=== PATIENT | female | born 1985 | race Caucasian/White ===

== ENCOUNTER 2019-12-14 11:52 | Emergency (ER) | payer OTHER, SELFPAY ==
[2019-12-14 11:58] VITALS: BP 136/97; PULSE 68; RESP 20; TEMP 36.7; O2SAT 99
--- NOTE | 2019-12-14 12:19 | ED.NAVMDI ---
HPI - Nausea/Vomiting/Diarrhea General Chief complaint: Nausea/Vomiting/Diarrhea Stated complaint: n/v/d x3days Time Seen by Provider: 12/14/19 12:07 Source: patient, RN notes reviewed and other (Review discharge instructions from [facility] in [facility]) Mode of arrival: ambulatory Limitations: no limitations History of Present Illness HPI Narrative: Patient is a 34-year-old female who presents to the emergency department with complaint of epigastric pain, nausea, and vomiting. Patient reports onset of symptoms 3 days ago. Patient reports history of acid reflux and states she has had issues with vomiting in the past, but symptoms this episode are worse than usual. Patient was seen at [facility] on 12/11 and 12/12 for these complaints. Patient had full panel of labs completed both visits and did have a CAT scan completed which she states was told showed no abnormalities. Patient was initially prescribed Bentyl, Zofran, and Carafate. She was subsequently prescribed Ativan and promethazine. Patient denies relief with prescribed medications. Patient is on omeprazole for her acid reflux. MD elicited complaint: nausea and vomiting Location of pain: epigastric Relieving factors: none Related Data Home Medications Medication Instructions Recorded Confirmed lorazepam 1 mg PO TID PRN 12/14/19 omeprazole 20 mg PO DAILY PRN 12/14/19 Allergies Allergy/AdvReac Type Severity Reaction Status Date / Time aspirin Allergy Severe Jittery/PAL Verified 11/30/17 05:24 E/SHAKEY/N/ V Review of Systems Review of Systems: All systems reviewed & are unremarkable except as noted in HPI and below PMFSH Past Medical History Medical History (Updated 12/14/19 @ 15:19 by Siobhan Wilson MD) GERD (gastroesophageal reflux disease) Surgical History Surgical History (Updated 12/14/19 @ 12:24 by Siobhan Wilson MD) History of dilatation and curettage History of ovarian cystectomy Social History Social History (Updated 12/14/19 @ 12:25 by Siobhan Wilson MD) Smoking status: Former smoker Substance use type: marijuana Last use: Approximately 2 weeks Exam Const: General: cooperative, no acute distress and alert Nutritional Appearance: obese Orientation/consciousness: patient oriented x3 Limitations: no limitations HENMT: Mouth: Yes lip normal and Yes moist mucous membranes Resp: Effort & Inspection: normal respiratory effort Auscultation: clear to auscultation bilaterally Cardio: Rate: regular rate Rhythm: regular rhythm GI: GI Palp: Yes Soft to palpation, Yes Tenderness to palpation present (GI) (Epigastric), No Guarding due to palpation present (GI) and No Rebound tenderness present Auscultation: normal bowel sounds Skin: General skin exam: normal color Neuro: General: patient oriented x3 Cognition (Neuro): normal cognition Speech: normal speech Extrem: General: normal to inspection, full ROM and no clubbing, cyanosis or edema Psych: Mental Status: mental status grossly normal Affect: normal affect Attitude: cooperative Course Course Emergency Course: Patient feeling better after Haldol, Protonix, GI cocktail, and IV fluids. Patient advised to continue her omeprazole and Carafate as prescribed and take her home nausea medications as needed and directed and to follow-up with primary care physician for further evaluation. Vital Signs Vital signs: Vital Signs Temperature 98.0 F 12/14/19 11:58 Pulse Rate 68 12/14/19 11:58 Respiratory Rate 20 12/14/19 11:58 Blood Pressure 136/97 H 12/14/19 11:58 Pulse Oximetry 99 12/14/19 11:58 Temperature 98.0 F 12/14/19 11:58 Pulse Rate 73 12/14/19 14:21 Respiratory Rate 18 12/14/19 14:21 Blood Pressure 152/84 H 12/14/19 14:21 Pulse Oximetry 100 12/14/19 14:21 MDM - Nausea/Vomiting/Diarrhea Lab Data Attestation: I reviewed the patient's lab results. Result diagrams:
[2019-12-14] MEDS: LACTATED RINGERS 1,000 ML 999 ML IV CONT (12:31)
[2019-12-14] MEDS: HALOPERIDOL LACTATE 5 MG/ML VIAL IM (12:31)
[2019-12-14] MEDS: PANTOPRAZOLE SODIUM IV 40 MG VIAL IV PUSH (12:31)
[2019-12-14 12:49] LABS: Basophils Percent Auto 0.3 % (0.2-1.2); Eosinophils Percent Auto 0.1 % (0-4.4); Hematocrit 42.4 % (37.0-47.0); Hemoglobin 14.2 g/dL (12.0-15.0); Immature Granulocyte Absolute 0.06 K/mm3 (0.00-0.031); Immature Granulocyte Percent A 0.5 % (0-0.5); Lymphocytes Absolute Auto 1.59 K/mm3 (0.9-3.2); Lymphocytes Percent Auto 13.3 % (18.3-44.2); Mean Corpuscular HGB Conc 33.5 g/dl (32-36); Mean Corpuscular Hemoglobin 28.6 pg (26-34); Mean Corpuscular Volume 85.3 fl (80-100); Mean Platelet Volume 10.7 fl (7.4-10.4); Monocytes Absolute Auto 0.6 K/mm3 (0.1-0.6); Neutrophils Absolute Auto 9.7 K/mm3 (1.3-6.7); Neutrophils Percent Auto 80.8 % (45.5-73.1); Platelet Count Result 360 k/mm3 (150-375); Red Blood Count 4.97 M/mm3 (4.2-5.4); Red Cell Distribution Width 13.2 % (11.5-14.5)
[2019-12-14 12:54] VITALS: BP 148/90; PULSE 65
[2019-12-14 12:55] VITALS: BP 148/102; PULSE 71
[2019-12-14 12:57] VITALS: BP 162/95; PULSE 71
[2019-12-14 13:01] LABS: Alanine Aminotransferase 22 U/L (4-35); Albumin Level 4.6 g/dL (3.5-5.1); Alkaline Phosphatase 76 U/L (38-126); Aspartate Amino Transferase 19 U/L (14-36); Bilirubin,Total 0.6 mg/dL (0.2-1.3); Blood Urea Nitrogen 10 mg/dL (7-17); Calcium 9.5 mg/dL (8.4-10.2); Carbon Dioxide 24 mmol/L (22-30); Chloride 104 mmol/L (98-107); Estimated CRCL calculation 182 ml/min; Estimated Glomerular Filt Rate > 60; Glucose 110 mg/dL (65-105); Lipase 35 U/L (23-300); Potassium 3.3 mmol/L (3.4-5.0); Sodium 137 mmol/L (137-145)
[2019-12-14 13:22] LABS: Add Urine Microscopic? YES; Appearance Urine Clear (Clear); Bilirubin Urine Negative (Negative); Blood Urine Negative (Negative); Color Urine Yellow (Yellow); Glucose Urine UA Negative (Negative); Ketones Urine 1+ mg/dL (Negative); Leukocyte Esterase Ur Negative LEU/UL (Negative); Mucus Urine Rare /lpf; Nitrate Urine Negative (Negative); Protein Urine 1+ mg/dL (Negative); RBC Urine 0-2 /hpf (0-2); Specific Grav Ur 1.021 (1.001-1.035); Squamous Epithelial Cell Urine Few /hpf (Few); Urobilinogen Urine Negative mg/dL (<2.0); WBC Urine 0-3 /hpf
[2019-12-14 14:21] VITALS: BP 152/84; PULSE 73; RESP 18; O2SAT 100
[2019-12-14 15:26] VITALS: BP 140/87; PULSE 80; RESP 16; O2SAT 100
== END 2019-12-14 15:27 | disposition home or self-care (01) ==
PROVIDERS: Emergency Provider Emergency Medicine; PCP Family Medicine
DX: R11.2 Nausea with vomiting, unspecified (principal); E86.0 Dehydration; K21.9 Gastro-esophageal reflux disease without esophagitis; Z87.891 Personal history of nicotine dependence
CPT/HCPCS: 36415; 80053; 81001; 83690; 85025; 96361; 96372; 96374; 99284; A9270; C9113; J1630; J7120

== ENCOUNTER 2020-09-28 18:16 | Emergency (ER) | payer BC, SELFPAY ==
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
--- NOTE | 2020-09-28 18:23 | ED.GENADULT ---
HPI - General Adult General Chief complaint: Extremity Injury, Upper Stated complaint: left wrist pain Time Seen by Provider: 09/28/20 18:23 Source: patient Mode of arrival: ambulatory Limitations: no limitations History of Present Illness HPI narrative: 35-year-old female patient presents to the [facility] with complaints of left wrist pain. Patient states about a week ago she went to go and use her left wrist to push up from getting up from a chair and states she heard a pop and immediately had pain to the left wrist. Patient states she iced and has been taking Tylenol and ibuprofen for it but continues to have pain to the left wrist area even a week later. Patient states that she is now developed some numbness to the thumb and has weakness to the hand when trying to pour something with the hand or when she tries to hold her phone for an extended period of time. Patient also reports that she had there is a little bump to her wrist that is very tender. Patient states that she did have issues with tendons and ligaments when she was younger and had to see an orthopedic surgeon as well as go to physical therapy. Patient suspects she might of had undiagnosed Marfan syndrome but states that her parents were not very attentive parents and really did not fill her in on any type of diagnosis. Related Data Home Medications Medication Instructions Recorded Confirmed lorazepam 1 mg PO TID PRN 12/14/19 escitalopram oxalate mg 09/28/20 omeprazole 09/28/20 Allergies Allergy/AdvReac Type Severity Reaction Status Date / Time aspirin Allergy Severe Jittery/PAL Verified 09/28/20 18:28 E/MODESTO/N/ V Review of Systems Review of Systems: Narrative: CONSTITUTIONAL: Denies fever, chills, or sweats. EYES: Denies visual changes, redness, or discharge. ENT: Denies rhinorrhea, congestion, sore throat, or otalgia. CARDIOVASCULAR: Denies chest pain, palpitations, or edema. RESPIRATORY: Denies cough or dyspnea. GASTROINTESTINAL: Denies abdominal pain, nausea, vomiting, or diarrhea. GENITOURINARY: Denies dysuria or hematuria. SKIN: Denies rash or itching. MUSCULOSKELETAL: Denies back pain, joint pain, or myalgia. Positive left wrist pain NEUROLOGIC: Denies headache, numbness, or weakness. PSYCHIATRIC: Denies anxiety or depression. [facility] Past Medical History Medical History (Updated 09/28/20 @ 19:07 by JELENA Shen) Anxiety GERD (gastroesophageal reflux disease) Surgical History Surgical History History of dilatation and curettage History of ovarian cystectomy Social History Social History Smoking status: Former smoker Substance use type: marijuana Last use: Approximately 2 weeks Comments At the time of my signature I agree with nursing past medical history, surgical, social, and family history. There is no relevant family history pertinent to the presenting complaint. Exam Narrative: Exam Narrative: GENERAL: Well-appearing, well-nourished, and in no acute distress. HEAD: Normocephalic, atraumatic. EYES: PERRLA and EOMI. ENT: Nares clear, no rhinorrhea or epistaxis. Mucous membranes moist. NECK: Supple. No lymphadenopathy CHEST: Clear to auscultation. No respiratory distress. HEART: Regular rate and rhythm. No murmur heard. Normal peripheral pulses. ABDOMEN: Soft, nontender, nondistended, normal active bowel sounds. EXTREMITIES: The L wrist is without obvious asymmetry or deformity when compared to the R wrist. No surface trauma, open wounds, swelling, or obvious deformity. Patient does have what appears to be a small knot to the radial side of the anterior left wrist. The knot is tender on palpation. No overlying erythema or warmth. No bony crepitus or focal area of TTP. No scaphoid fullness or tenderness to direct palpation or axial load. Normal flex/extension, ulnar/radial deviation. Motor/sensory
[2020-09-28 18:34] VITALS: BP 145/87; PULSE 83; RESP 16; TEMP 37.2; O2SAT 99
== END 2020-09-28 19:09 | disposition home or self-care (01) ==
PROVIDERS: Emergency Provider Nurse Practitioner Family; PCP Family Medicine
DX: M65.4 Radial styloid tenosynovitis [de Quervain] (principal); F41.9 Anxiety disorder, unspecified; K21.9 Gastro-esophageal reflux disease without esophagitis; Z87.891 Personal history of nicotine dependence
CPT/HCPCS: 73110; 99213; G0463

== ENCOUNTER 2022-11-29 12:27 | Emergency (ER) | payer OTHER, BC, SELFPAY ==
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
[2022-11-29 13:13] VITALS: BP 150/60; PULSE 75; RESP 16; TEMP 36.5; O2SAT 100
[2022-11-29 16:36] VITALS: BP 139/90; PULSE 82; RESP 18; O2SAT 100
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
[2022-11-29] MEDS: KETOROLAC (*BKC) 60 MG/2 ML VIAL IM (17:25)
== END 2022-11-29 17:35 | disposition home or self-care (01) ==
PROVIDERS: Emergency Provider Physician Assistant; PCP Family Medicine
DX: S16.1XXA Strain of muscle, fascia and tendon at neck level, initial encounter (principal); S46.911A Strain of unspecified muscle, fascia and tendon at shoulder and upper arm level, right arm, initial encounter; K21.9 Gastro-esophageal reflux disease without esophagitis; F41.9 Anxiety disorder, unspecified; Z87.891 Personal history of nicotine dependence; V49.40XA Driver injured in collision with unspecified motor vehicles in traffic accident, initial encounter
CPT/HCPCS: 70450; 72125; 73030; 96372; 99284; J1885

== ENCOUNTER 2023-02-12 10:51 | Emergency (ER) | payer BC, SELFPAY ==
--- NOTE | ~2023-02-12 | XR_ITS ---
XR foot LT min 3V DATE: 02/12/2023 11:16 INDICATION: Left lateral foot pain TECHNIQUE: 4 views COMPARISON: None FINDINGS: Mild plantar and posterior calcaneal enthesopathy, without associated erosive change or per iostitis. There is mild soft tissue swelling over the base of the fifth metatarsal bone. There is some thinning and lucency of the lateral cortex of the fifth metatarsal bone in the proximal diametaphyseal area, of uncertain significance. No fracture is evident. No periosteal reaction is detected. Consider MR ex amination for further evaluation as clinically appropriate. Otherwise no fracture, dislocation, periosteal reaction or bone destruction is noted. IMPRESSION: Soft tissue swelling over the base of the fifth metatarsal with underlying nonspecific co rtical thinning and lucency of the lateral diametaphyseal area of the fifth metatarsal bone. Consider MR foot evaluation Reviewed, dictated and finalized at location A. IMPRESSION: Soft tissue swelling over the base of the fifth metatarsal with und erlying nonspecific cortical thinning and lucency of the lateral diametaphyseal area of the fifth metatarsal bone. Consider MR foot evaluation
--- NOTE | 2023-02-12 10:55 | ED.LOWEXIN ---
HPI - Extremity Injury (Lower) General Chief Complaint: Extremity Injury, Lower Stated Complaint: left foot pain Time Seen by Provider: 02/12/23 10:55 Source: patient, RN notes reviewed and old records reviewed Mode of arrival: ambulatory Limitations: no limitations History of Present Illness HPI Narrative: 37-year-old female to the [facility] with complaints of left lateral foot pain for 9 days. States that she dropped a table on it. Has been resting, icing it, heating it, using KT tape Related Data Home Medications Medication Instructions Recorded Confirmed alprazolam 1 mg tablet 1 mg PO TID 02/12/23 02/12/23 amitriptyline 25 mg tablet 25 mg PO HS 02/12/23 02/12/23 phentermine 37.5 mg tablet 37.5 mg PO DAILY 02/12/23 02/12/23 Allergies Allergy/AdvReac Type Severity Reaction Status Date / Time aspirin Allergy Severe Jittery/PAL Verified 02/12/23 11:03 E/SHAKEY/N/ V Review of Systems Review of Systems: All systems reviewed & are unremarkable except as noted in HPI and below Constitutional: Constitutional: Reports no additional constitutional complaints Eyes: Eyes: Reports no additional eye complaints ENT: Reports system reviewed and no additional complaints, except as documented Cardiovascular: Cardiovascular: Reports no additional cardiovascular complaints, Denies chest pain and Denies dyspnea Respiratory: Respiratory: Reports no additional respiratory complaints, Denies chest congestion, Denies cough and Denies dyspnea Gastrointestinal: Gastrointestinal: Reports no additional gastrointestinal complaints, Denies abdominal pain, Denies nausea and Denies vomiting Musculoskeletal: Musculoskeletal: Reports as per HPI Integumentary/Breasts: Skin/Breast: Reports system reviewed and no additional complaints, except as docu Neurologic: Reports system reviewed and no additional complaints, except as documented Psychiatric: Psychiatric: Reports no additional psychiatric complaints Allergic/Immunologic: Allergic/Immunologic: Reports no additional allergic/immunologic complaints PMFSH Past Medical History Medical History Anxiety GERD (gastroesophageal reflux disease) Surgical History Surgical History History of dilatation and curettage History of ovarian cystectomy Social History Social History Smoking status: Former smoker Substance use type: marijuana Last use: Approximately 2 weeks Comments At the time of my signature, I reviewed and agree with the nursing past medical, surgical, social, and family history. There is no relevant family history pertinent to the patient complaint. Exam Const: General: cooperative, healthy appearing, comfortable, no acute distress, well developed, alert and well nourished Nutritional Appearance: well nourished Orientation/consciousness: patient oriented x3 Limitations: no limitations HENMT: Head: normal to inspection Ears: hearing grossly normal bilaterally and external ears normal Face/Nose/Sinus: Normal external nose present, Normal nares present and normal facial exam Face and sinus: normal facial exam Mouth: Yes lip normal Eyes: General: appearance normal, both eyes and all related structures Alignment and Position: alignment normal Periorbital: periorbital findings normal Pupils: Equal, round and reactive pupils present EOM: EOMs intact bilaterally Neck: Neck: normal visual inspection, full ROM, no lymphadenopathy and no meningeal signs Chest: Chest palpation & inspection: normal inspection of the chest Resp: Effort & Inspection: normal respiratory effort and able to speak in complete sentences Cardio: Rate: regular rate Rhythm: regular rhythm Back/Spine/Pelvis: Cervical Spine: cervical ROM normal Thoracic/Lumbar Spine: No thoracic spinal tenderness Skin: General skin exam:
[2023-02-12 11:08] VITALS: BP 118/79; PULSE 71; RESP 16; TEMP 36.7; O2SAT 98
== END 2023-02-12 12:00 | disposition home or self-care (01) ==
PROVIDERS: Emergency Provider Nurse Practitioner; PCP Family Medicine
DX: M79.672 Pain in left foot (principal); Z87.891 Personal history of nicotine dependence; F12.90 Cannabis use, unspecified, uncomplicated; F41.9 Anxiety disorder, unspecified; K21.9 Gastro-esophageal reflux disease without esophagitis
CPT/HCPCS: 73630; 99213; G0463

== ENCOUNTER 2024-01-11 08:52 | Emergency (ER) | payer MEDICAID, SELFPAY ==
--- NOTE | 2024-01-11 09:03 | ED.URI ---
HPI - URI/Sore Throat General Chief Complaint: Allergic Reaction Stated Complaint: Throat Swellng Time Seen by Provider: 01/11/24 09:05 Source: patient Mode of arrival: ambulatory Limitations: no limitations History of Present Illness HPI Narrative: Kayy is a 38-year-old female patient presenting to the clinic today with complaints of feeling as though her throat is swelling. She states that this started this morning. Did have a itchy skin last night took some Benadryl and this resolved however, this morning she woke up with what she feels is swelling of her throat. She denies any difficulty swallowing, coughing, difficulty breathing, or swelling of the tongue. There is no active drooling. She denies any fever, chills, or body aches. No known exposure to anyone with strep. No changes in soaps, shampoos, detergents, lotions, foods, medications, or environment. No history anaphylaxis. Only medication history allergy is aspirin. MD elicited complaint: sore throat Related Data Home Medications Medication Instructions Recorded Confirmed alprazolam 1 mg tablet 1 mg PO TID 02/12/23 01/11/24 amitriptyline 25 mg tablet 25 mg PO HS 02/12/23 01/11/24 phentermine 37.5 mg tablet 37.5 mg PO DAILY 02/12/23 01/11/24 Allergies Allergy/AdvReac Type Severity Reaction Status Date / Time aspirin Allergy Severe Jittery/PAL Verified 02/12/23 11:03 E/MODESTO/N/ V Review of Systems Review of Systems: Pertinent positives per HPI. Patient denies any fever, chills, rash, headache, visual changes, dizziness, cough, shortness of breath, chest pain, palpitations, nausea, vomiting, diarrhea, constipation, abdominal pain, or any urinary issues. [facility] Past Medical History Medical History Anxiety GERD (gastroesophageal reflux disease) Surgical History Surgical History History of dilatation and curettage History of ovarian cystectomy Social History Social History Smoking status: Former smoker Substance use type: marijuana Last use: Approximately 2 weeks Comments At the time of my signature, I reviewed and agree with the nursing past medical, surgical, social, and family history. There is no relevant family history pertinent to the patient complaint. Exam Narrative: General: Well-developed, well nourished, in no apparent distress Head: Normocephalic, atraumatic Eyes: Pupils equally round and reactive to light bilaterally, EOM intact, sclera and conjunctive clear, no discharge, lids normal Ears: TMs intact and clear, ear canals clear, no drainage, grossly hearing normal. Nose: Nares patent, no discharge, no inflammation, no sinus tenderness. Mouth: Oral pharynx red without lesions or masses, good dentition, MMM. Neck: Supple, trachea midline, no enlargement of anterior or posterior cervical nodes, no thyroid masses or goiter palpable. Cardio: Regular rate and rhythm, s1 and s2 normal, no murmur appreciated. Resp: Clear to auscultation bilaterally, no rhonchi, rales, wheezing or rubs Course Course Emergency Course: Portions of this record may have been created with voice recognition software. Level of Care: Express Care Visit Vital Signs Vital signs: Vital signs reviewed MDM - URI/Sore Throat MDM Narrative Medical decision making narrative: At the time of visit patient is resting comfortably on the exam table. Patient appears to be nontoxic. Labs: Strep test was obtained was negative in the clinic today. We will send for culture Plan: I suspect patient has pharyngitis- no obvious allergic reaction/throat swelling/or angio edema. Strep test was negative so I will put her on a 5 day course of steroids to see if this helps alleviate her symptoms and discussed using Benadryl. Supportive measures were discussed with the idris
[2024-01-11 09:04] VITALS: BP 122/57; PULSE 87; RESP 16; TEMP 36.8; O2SAT 100
== END 2024-01-11 09:25 | disposition home or self-care (01) ==
PROVIDERS: Emergency Provider Nurse Practitioner Family; PCP Family Medicine
DX: J02.9 Acute pharyngitis, unspecified (principal); K21.9 Gastro-esophageal reflux disease without esophagitis
CPT/HCPCS: 87081; 87880; 99213; G0463

== ENCOUNTER 2024-02-14 02:36 | Emergency (ER) | payer MEDICAID, SELFPAY ==
--- NOTE | ~2024-02-14 | CT_ITS ---
EXAMINATION: CT lumbar spine wo con DATE: 02/14/2024 03:37 INDICATION: Low back pain. Left-sided sciatica. TECHNIQUE: Computed tomography (CT) of the lumbar spine was performed without intravenous contrast. A utomated exposure control and iterative reconstruction technique were employed. The dose-length produ ct was 1524.18 mGy-cm. COMPARISON: None FINDINGS: There is an intrauterine device in expected position. Bone alignment is normal. Vertebral b july heights are normal. There is mildly decreased disc height at L4-L5 and moderately decreased disc height at L5-S1. The following disc levels are specifically discussed: L1-L2: The disc does not extend beyond the endplate margin. There is mild bilateral facet joint osteo arthritis. There is no neural foraminal stenosis. There is no central canal stenosis. L2-L3: The disc does not extend beyond the endplate margin. There is moderate bilateral facet joint o steoarthritis. There is no neural foraminal stenosis. There is no central canal stenosis. L3-L4: The disc is bulging. There is severe bilateral facet joint osteoarthritis. There is mild bilat eral neural foraminal stenosis. There is mild central canal stenosis. L4-L5: The disc is bulging. There is severe bilateral facet joint osteoarthritis. There is mild bilat eral neural foraminal stenosis. There is mild central canal stenosis. L5-S1: The disc is bulging. There is severe bilateral facet joint osteoarthritis. There is mild right and moderate left neural foraminal stenosis. There is mild central canal stenosis. IMPRESSION: 1. Moderate lower lumbar spondylosis. Reviewed, dictated and finalized at location A.
[2024-02-14 02:48] VITALS: BP 152/106; PULSE 79; RESP 22; TEMP 36.6; O2SAT 100
[2024-02-14] MEDS: ORPHENADRINE CITRATE 100 MG TABLET.ER PO (03:18)
[2024-02-14] MEDS: KETOROLAC (*BKC) 60 MG/2 ML VIAL IM (03:19)
[2024-02-14] MEDS: dexAMETHasone SOD PHOS INJ 10 MG/ML 1 ML VIAL IM (03:19)
[2024-02-14 03:32] LABS: Appearance Urine Cloudy (Clear); Bacteria Urine 1+ /hpf; Bilirubin Urine Negative (Negative); Blood Urine 3+ (Negative); Color Urine Yellow (Yellow); Glucose Urine UA Negative (Negative); Ketones Urine Negative (Negative); Leukocyte Esterase Ur Negative LEU/UL (Negative); Nitrate Urine Negative (Negative); Non Pathogenic Casts 0-2; Protein Urine Trace mg/dL (Negative); Specific Grav Ur 1.028 (1.001-1.035); Squamous Epithelial Cell Urine Few /hpf (Few); WBC Urine 0-5 /hpf (0-3); pH Urine 6.5 (5.0-9.0)
[2024-02-14 03:36] LABS: Add Urine Microscopic? YES
[2024-02-14 03:58] VITALS: BP 121/88; PULSE 60; RESP 16; O2SAT 100
--- NOTE | 2024-02-14 04:21 | ED.GENADULT ---
HPI - General Adult General Chief complaint: Back Pain/Injury Stated complaint: back pain Time Seen by Provider: 02/14/24 03:00 History of Present Illness HPI narrative: patient 38-year-old female presents emergency department with chief complaint of back pain. Patient reports that she has prior history of herniated disc in her back and reports that about 3 days ago she was moving some boxes and turned and felt a uncomfortable feeling in the left flank area the patient worse the pain radiates down her left leg reports that she does have some intermittent tingling in the posterior aspect of her thigh. The patient reports that she has no new bowel or bladder dysfunction denies saddle anesthesia denies footdrop. Related Data Home Medications Medication Instructions Recorded Confirmed alprazolam 1 mg tablet 1 mg PO TID 02/12/23 01/11/24 amitriptyline 25 mg tablet 25 mg PO HS 02/12/23 01/11/24 phentermine 37.5 mg tablet 37.5 mg PO DAILY 02/12/23 01/11/24 Allergies Allergy/AdvReac Type Severity Reaction Status Date / Time aspirin Allergy Severe Jittery/PAL Verified 02/12/23 11:03 E/SHAKEY/N/ V Review of Systems Review of Systems: A 10 system review of systems was completed on the patient and is negative except for what is stated in the HPI. Nursing and ancillary documentation was reviewed. [facility] Past Medical History Medical History Anxiety GERD (gastroesophageal reflux disease) Surgical History Surgical History History of dilatation and curettage History of ovarian cystectomy Social History Social History Smoking status: Former smoker Substance use type: marijuana Last use: Approximately 2 weeks Exam Narrative: GENERAL: Well-appearing, well-nourished, and in no acute distress. HEAD: Normocephalic, atraumatic. EYES: PERRLA and EOMI. ENT: Nares clear, no rhinorrhea or epistaxis. Mucous membranes moist. NECK: Supple. CHEST: Clear to auscultation. No respiratory distress. HEART: Regular rate and rhythm. No murmur heard. Normal peripheral pulses. ABDOMEN: Soft, nontender, nondistended, normal active bowel sounds. EXTREMITIES: Normal range of motion. No edema. No saddle anesthesia no footdrop SKIN: Warm, dry, no rash. NEURO: No focal deficits. Alert and oriented x3. PSYCH: Normal mood and affect. Course Vital Signs Vital signs: Vital Signs Temperature 36.6 C 02/14/24 02:48 Pulse Rate 79 02/14/24 02:48 Respiratory Rate 22 H 02/14/24 02:48 Blood Pressure 152/106 H 02/14/24 02:48 Pulse Oximetry 100 02/14/24 02:48 Oxygen Delivery Room Air 02/14/24 02:48 Temperature 36.6 C 02/14/24 02:48 Pulse Rate 75 02/14/24 05:41 Respiratory Rate 15 02/14/24 05:41 Blood Pressure 118/80 02/14/24 05:41 Pulse Oximetry 100 02/14/24 05:41 Oxygen Delivery Room Air 02/14/24 02:48 Medical Decision Making [facility] Narrative Medical decision making narrative: differential diagnosis includes sciatica, lumbar radiculopathy, patient shows no signs of acute cauda equina syndrome no evidence of acute nerve root compression patient given steroids muscle relaxer and and anti-inflammatories. Patient is feeling better patient be discharged home a steroid pulse muscle relaxer and an anti-inflammatory Vital Signs Vital Signs: Vital Signs Temperature 36.6 C 02/14/24 02:48 Pulse Rate 79 02/14/24 02:48 Respiratory Rate 22 H 02/14/24 02:48 Blood Pressure 152/106 H 02/14/24 02:48 Pulse Oximetry 100 02/14/24 02:48 Oxygen Delivery Room Air 02/14/24 02:48 Temperature 36.6 C 02/14/24 02:48 Pulse Rate 75 02/14/24 05:41 Respiratory Rate 15 02/14/24 05:41 Blood Pressure 118/80 02/14/24 05:41 Pulse Oximetry 100 02/14/24 05:41 Oxygen Delivery Room Air
[2024-02-14 05:41] VITALS: BP 118/80; PULSE 75; RESP 15; O2SAT 100
== END 2024-02-14 06:11 | disposition home or self-care (01) ==
PROVIDERS: Emergency Provider Emergency Medicine
DX: M54.32 Sciatica, left side (principal); K21.9 Gastro-esophageal reflux disease without esophagitis; F41.9 Anxiety disorder, unspecified; Z87.891 Personal history of nicotine dependence; Z79.899 Other long term (current) drug therapy
CPT/HCPCS: 72131; 81001; 81025; 96372; 99284; A9270; J1100; J1885

== ENCOUNTER 2024-10-01 11:52 | Emergency (ER) | payer MEDICAID, SELFPAY ==
--- NOTE | 2024-10-01 12:14 | ED_ITS ---
HPI - Nausea/Vomiting/Diarrhea General Chief complaint: Nausea/Vomiting/Diarrhea Stated complaint: Light headed/Vomiting Time Seen by Provider: 10/01/24 12:14 Source: patient and family Mode of arrival: ambulatory Limitations: no limitations History of Present Illness HPI Narrative: Kayy is a 39-year-old female patient presenting to the clinic today with complaints of fainting, nausea, vomiting, diarrhea, abdominal pain, and chest pain. Symptoms started around 6:00 a.m. this morning. Is now dry heaving. She is hunched over in the wheelchair and will not get on to the stretcher because she feels so faint. Stating that her abdomen and chest her and that she is short of breath. Went to the ER in had 15 patient's before them so they decided to come to the [facility] for evaluation. Related Data Home Medications ?Medication ?Instructions ?Recorded ?Confirmed ?Last Taken ?Type alprazolam 1 mg tablet 1 mg PO TID 02/12/23 01/11/24 Unknown History amitriptyline 25 mg tablet 25 mg PO HS 02/12/23 01/11/24 Unknown History phentermine 37.5 mg tablet 37.5 mg PO DAILY 02/12/23 01/11/24 Unknown History Allergies Allergy/AdvReac Type Severity Reaction Status Date / Time aspirin Allergy Severe Jittery/PAL Verified 02/12/23 11:03 E/MODESTO/N/ V Review of Systems Review of Systems: Pertinent positives per HPI. Patient denies any fever, chills, rash, headache, visual changes, dizziness, cough, runny nose, sore throat, chest pain, palpitations, constipation, or any urinary issues. [facility] Past Medical History Medical History Anxiety GERD (gastroesophageal reflux disease) Surgical History Surgical History History of dilatation and curettage History of ovarian cystectomy Social History Social History Smoking status: Former smoker Substance use type: marijuana Last use: Approximately 2 weeks Comments At the time of my signature, I reviewed and agree with the nursing past medical, surgical, social, and family history. There is no relevant family history pertinent to the patient complaint. Exam Narrative: General: Well-developed, well nourished, pale and acutely ill-appearing Head: Normocephalic, atraumatic. Cardio: Regular rate and rhythm, s1 and s2 normal, no murmur appreciated. Resp: Clear to auscultation bilaterally, no rhonchi, rales, wheezing or rubs. Abdomen: Soft, pliable, bowel sounds present in all quadrants, generalized- tender to palpation, no organomegly, no CVAT tenderness. Course Course Emergency Course: Portions of this record may have been created with voice recognition software. Level of Care: Express Care Visit Vital Signs Vital signs: Vital Signs Temperature 36.0 C L 10/01/24 12:16 Pulse Rate 79 10/01/24 12:16 Respiratory Rate 16 10/01/24 12:16 Blood Pressure 156/94 H 10/01/24 12:16 Pulse Oximetry 100 10/01/24 12:16 Temperature 36.0 C L 10/01/24 12:16 Pulse Rate 79 10/01/24 12:16 Respiratory Rate 16 10/01/24 12:16 Blood Pressure 156/94 H 10/01/24 12:16 Pulse Oximetry 100 10/01/24 12:16 Vital signs reviewed Transfer Transfered to: [facility]: [facility] Transfer rationale: Syncope, nausea, vomiting, diarrhea, abdominal pain, chest pain, shortness of breath Accepting physician: Maricruz Transfer comments: [facility] MDM - Nausea/Vomiting/Diarrhea MDM Narrative Medical decision making narrative: At the time of visit patient is sitting in a wheelchair hunched over and dry heaving. Patient appears to be acutely [id number] Plan: Recommend transfer to the ER as patient has been fainting, having nausea, vomiting, and diarrhea as well as complaining of chest pain, abdominal pain, and shortness of breath. [facility] was called. Family would like to go to [facility]. Contacted Maricruz at [facility] and she accepts patient for transfer. Differential Diagnosis Differential diagnosis: Likely traveler's diarrhea, food poisoning, gastroenteritis, clostridium difficile infection, drug-induced nausea and vomiting, dehydration and other (COVID, vasovagal syncope, hyperventilation, anxiety, nausea, vomiting, and diarrhea) Discharge Plan Discharge Clinical Impression: Syncope Qualifiers: Syncope type: unspecified Qualified Code(s): R55 - Syncope and collapse Nausea & vomiting Qualifiers: Vomiting type: bilious vomiting Qualified Code(s): R11.14 - Bilious vomiting Abdominal pain Qualifiers: Abdominal location: generalized Qualified Code(s): R10.84 - Generalized abdominal pain Chest pain Qualifiers: Chest pain type: unspecified Qualified Code(s): R07.9 - Chest pain, unspecified Clinical Impression: (Ruled Out): Drug-induced nausea and vomiting Patient Disposition: Acute Care Hospital Condition: Guarded Prognosis Patient Language: Amharic Prescriptions: No Action phentermine 37.5 mg tablet 37.5 mg PO DAILY amitriptyline 25 mg tablet 25 mg PO HS alprazolam 1 mg tablet 1 mg PO TID prednisone 20 mg tablet 40 mg PO DAILY 5 Days Qty: 10 0RF cyclobenzaprine 10 mg tablet 10 mg PO TID PRN (Reason: muscle spasm) Qty: 21 0RF diclofenac potassium 50 mg tablet 50 mg PO TID PRN (Reason: pain) Qty: 30 0RF prednisone 20 mg tablet 40 mg PO DAILY 5 Days Qty: 10 0RF Follow-up/Referrals: PHYSICIAN,PROJECT GEOPHYSICIST [Primary Care Provider] - Time of Disposition: 12:24 Quality NIHSS Nursing Documentation ED NIHSS nursing documentation: reviewed/agree
[2024-10-01 12:16] VITALS: BP 156/94; PULSE 79; RESP 16; TEMP 36; O2SAT 100
== END 2024-10-01 12:20 | disposition short-term general hospital (02) ==
PROVIDERS: Emergency Provider Nurse Practitioner Family
DX: R55 Syncope and collapse (principal); R11.14 Bilious vomiting; R10.84 Generalized abdominal pain; R07.9 Chest pain, unspecified; F12.90 Cannabis use, unspecified, uncomplicated; F41.9 Anxiety disorder, unspecified; K21.9 Gastro-esophageal reflux disease without esophagitis
CPT/HCPCS: 99215; G0463

== ENCOUNTER 2024-10-01 12:47 | Emergency (ER) | payer MEDICAID, SELFPAY ==
--- NOTE | ~2024-10-01 | CT_ITS ---
EXAMINATION: CT brain wo con DATE: 10/01/2024 14:00 INDICATION: Head injury. Loss of consciousness. TECHNIQUE: Computed tomography (CT) of the head was performed without intravenous contrast. The mA wa s adjusted according to patient size. Iterative reconstruction technique was employed. The dose-lengt h product was 681.00 mGy-cm. COMPARISON: Head CT 11/29/2022 FINDINGS: There is no intracranial hemorrhage, acute infarction, or abnormal intracranial mass lesion . The ventricles are normal in size. There is mild mucosal thickening in the ethmoid sinuses. There i s a small left mastoid effusion. IMPRESSION: 1. Normal brain. Reviewed, dictated and finalized at location A. SHELL GRINDER IMPRESSION: 1. Normal brain.
--- OUTSIDE RECORDS SUMMARY | 2024-10-01 12:55 | XMS_ITS | Clinical Summary ---
Author Organization [facility] Address [address] [place] [address] Care Team Providers Care Typists Supervisor Name Role Phone Josette aSlas MD Primary Care Provider + Allergies Active Allergy Reactions Criticality Noted Date Comments Aspirin Vomiting Low 10/12/2019 Medications ALPRAZolam (XANAX) 1 mg tablet Take 1 mg by mouth 3 (three) times a day as needed for anxiety Active famotidine (PEPCID) 20 mg tabletIndications:D yspepsia Take 1 tablet (20 mg total) by mouth 2 (two) times a day 30 tablet 0 Active escitalopram (LEXAPRO) 10 mg tablet TK 1 T PO QD 0 Active omeprazole (PriLOSEC) 20 mg capsule Take 20 mg by mouth daily Active prochlorperazine (COMPAZINE) 10 mg tabletIndications:N ausea and Vomiting Take 1 tablet (10 mg total) by mouth 2 (two) times a day as needed for nausea or vomiting 10 tablet 1 0 Active LORazepam (Ativan) 1 mg tabletIndications:a nxiety,Insomnia,or nausea Take 1 tablet (1 mg total) by mouth 3 (three) times a day as needed for anxiety 15 tablet 1 Active ondansetron (ZOFRAN) 4 mg tablet Take 1 tablet (4 mg total) by mouth every 6 (six) hours 12 tablet 1 Active prochlorperazine (COMPAZINE) 10 mg tablet Take 1 tablet (10 mg total) by mouth every 6 (six) hours as needed for nausea or vomiting 20 tablet 1 Active ondansetron ODT (ZOFRAN-ODT) 4 mg disintegrating tablet Take 1 tablet (4 mg total) by mouth every 8 (eight) hours as needed for nausea or vomiting 20 tablet 1 Active doxycycline (VIBRAMYCIN) 100 mg capsule Take 1 tablet/capsu le (100 mg total) by mouth 2 (two) times a day 20 capsule 1 Active Active Problems No known active problems Surgical History Surgery Date Site/Laterality Comments DILATION AND CURETTAGE OF UTERUS CYST REMOVAL DILATION AND CURETTAGE OF UTERUS OVARIAN CYST REMOVAL Medical History Medical History Date Comments Hiatal hernia GERD (gastroesophageal reflux disease) Social History Tobacco Use Types Packs/Day Years Used Date Smoking Tobacco: Former Smokeless Tobacco: Never Alcohol Use Standard Drinks/Week Comments Not Currently 0 (1 standard drink = 0.6 oz pur e alcohol) Personal Safety Answer Date Recorded Getting School Help Needed Not on file 10/27 Comments No Sex and Gender Information Value Date Recorded Sex Assigned at Not on file 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 Gender Identity Not on file Sexual Orientation Not on file Obstetrics History Last Filed Vital Signs Vital Sign Reading Time Taken Comments Blood Pressure 136/69 05/24/2022 12:49 PM CDT Pulse 68 05/24/2022 12:49 PM CDT Temperature 35.9 ??C (96.6 ??F) 05/24/2022 12:49 PM C DT Respiratory Rate 26 05/24/2022 12:49 PM CDT Oxygen Saturation 100% 05/24/2022 12:49 PM CDT Inhaled Oxygen Concentration - - Weight 131.5 kg (290 lb) 05/24/2022 12:49 PM CDT Height 193 cm (6' 4 ) 05/24/2022 12:49 PM CDT Body Mass Index 35.3 05/24/2022 12:49 PM CDT Plan of Treatment Not on file Insurance PLAN PLAN PLAN Care Teams Typists Supervisor Relationship Specialty Start Date End Date Josette Salas MD PCP - General 03/20/19
--- OUTSIDE RECORDS SUMMARY | 2024-10-01 12:55 | XMS_ITS | Referral Summary ---
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
--- OUTSIDE RECORDS SUMMARY | 2024-10-01 12:55 | XMS_ITS | Clinical Summary ---
Author Organization [facility] Address [facility]. [place], [place] [address] [place] [id number] Care Team Providers Care Pharmacy Aide Name Role Phone Josette Salas MD Primary Care Provider [phone] Allergies Active Allergy Reactions Criticality Noted Date Comments Aspirin Shakiness 12/12/2019 Medications ALPRAZolam 1 MG tablet Take 1 mg by mouth 3 (three) times daily as needed for Sleep or Anxiety. Active dicyclomine 20 MG tablet Take 1 tablet (20 mg total) by mouth every 6 (six) hours. 30 tablet 1 Active ondansetron 4 MG tablet Take 4 mg by mouth every 8 (eight) hours. 1 Active cyclobenzaprine 5 MG tablet Take 5 mg by mouth 3 (three) times daily as needed. 1 Active ondansetron (ZOFRAN ODT) 4 MG disintegrating tablet Take 1 tablet (4 mg total) by mouth every 8 (eight) hours as needed for Nausea. 15 tablet 1 Active omeprazole 40 MG capsule Take 1 capsule (40 mg total) by mouth daily. 30 capsule 1 Active Family History Medical History Relation Comments Heart Disease Father Relation Status Comments Father Mother Social History Tobacco Use Types Packs/Day Years Used Date Smoking Tobacco: Never Smokeless Tobacco: Never Alcohol Use Standard Drinks/Week Comments Never 0 (1 standard drink = 0.6 oz pur e alcohol) AUDIT-C Answer Date Recorded Frequency of Alcohol Consumption Never 12/12/2019 Average Number of Drinks Not on file 020 Frequency of Binge Drinking Not on file 11/26 Comments No Sex and Gender Information Value Date Recorded Sex Assigned at Not on file Legal Sex Female 8:23 PM CDT Gender Identity Not on file Sexual Orientation Not on file Last Filed Vital Signs Vital Sign Reading Time Taken Comments Blood Pressure 159/107 06/18/2021 8:23 AM CDT Pulse 85 06/18/2021 8:23 AM CDT Temperature 36.2 ??C (97.2 ??F) 06/18/2021 8:23 AM CD T Respiratory Rate 20 06/18/2021 8:23 AM CDT Oxygen Saturation 99% 06/18/2021 8:23 AM CDT Inhaled Oxygen Concentration - - Weight 125.2 kg (276 lb) 06/18/2021 8:23 AM CDT Height 190.5 cm (6' 3 ) 06/18/2021 8:23 AM CDT Body Mass Index 34.5 06/18/2021 8:23 AM CDT Plan of Treatment Health Maintenance Due Date Last Done Comments Cervical Cancer Screening Pa p Smear (Age 30 to 64) Every 3 Years 1987 Annual Physical 1990 Hepatitis C 2005 DTaP, Tdap and Td Vaccines ( 1 - Tdap) 2006 Hepatitis B Vaccines (1 of 3 - 19+ 3-dose series) 2006 Cervical Cancer Screening Pa p with HPV Testing (Age 30 to 64) Every 5 Years 2017 Cervical Cancer Screening with HPV 2017 COVID-19 Vaccine (2023-2 5 season) 2024 Influenza Adult (#1) 2024 HPV Vaccines Aged Out No longer eligi ble based on patient's age to complete this topic Meningococcal B Vaccine Aged Out No l onger eligible based on patient's age to complete this topic Meningococcal Vaccine Aged Out No opal radha eligible based on patient's age to complete this topic Pneumococcal Vaccine: Pediat rics (0 to 5 Years) and At-Risk Patients (6 to 64 Years) Aged Out No longer eligible b ased on patient's age to complete this topic RSV Immunizations Under 20 Months Aged Out No longer eligible based on patient's age to complete this topic Insurance [facility] C/O PROVIDER SERVICES MALLORY [id number] Care Teams Pharmacy Aide Relationship Specialty Start Date End Date Josette Salas MD [address] [place] [address] ALEXANDRA WANG [id number] PCP - General FAMILY PRACTICE 12/12/19
[2024-10-01 13:20] VITALS: BP 140/83; PULSE 84; RESP 20; TEMP 36.6; O2SAT 100
--- NOTE | 2024-10-01 13:32 | ED.NAVMDI ---
HPI - Nausea/Vomiting/Diarrhea General Chief complaint: Nausea/Vomiting/Diarrhea Stated complaint: Nausea/Vomiting-syncopal episode Time Seen by Provider: 10/01/24 13:25 Focused HPI: Patient is a 39-year-old female presents to the ER with complaints of chest pain, upper abdominal pain, shortness of breath, multiple episodes of syncope, dry heaving, and multiple episodes of emesis. She reports her symptoms started abruptly this morning around 6:00 a.m. Patient reports she hit the side of her face on the wall and is unsure if she lost consciousness. She endorses a ?cardiac history, and history of depression. Patient reports she uses marijuana on a daily basis, but they ruled out my symptoms being caused by marijuana. She denies any urinary symptoms, recent fevers, back pain, headache. GENERAL: Ill-appearing, well-nourished, and in acute distress d/t vomiting. HEAD: Normocephalic, atraumatic. CHEST: Clear to auscultation. ?No respiratory distress. HEART: Regular rate and rhythm.? NEURO: ?Alert and oriented x3. Patient screened in triage and initial orders placed.? ?Additional care and disposition to be based upon?diagnostic testing and treatment. Related Data Home Medications ?Medication ?Instructions ?Recorded ?Confirmed ?Last Taken ?Type alprazolam 1 mg tablet 1 mg PO TID 02/12/23 01/11/24 Unknown History amitriptyline 25 mg tablet 25 mg PO HS 02/12/23 01/11/24 Unknown History phentermine 37.5 mg tablet 37.5 mg PO DAILY 02/12/23 01/11/24 Unknown History Allergies Allergy/AdvReac Type Severity Reaction Status Date / Time aspirin Allergy Severe Jittery/PAL Verified 02/12/23 11:03 E/MODESTO/N/ V PMF Past Medical History Medical History Anxiety GERD (gastroesophageal reflux disease) Surgical History Surgical History History of dilatation and curettage History of ovarian cystectomy Social History Social History Smoking status: Former smoker Substance use type: marijuana Last use: Approximately 2 weeks Course Vital Signs Vital signs: Vital Signs Temperature 36.6 C 10/01/24 13:20 Pulse Rate 84 10/01/24 13:20 Respiratory Rate 20 10/01/24 13:20 Blood Pressure 140/83 10/01/24 13:20 Pulse Oximetry 100 10/01/24 13:20 Oxygen Delivery Room Air 10/01/24 13:20 Temperature 36.6 C 10/01/24 13:20 Pulse Rate 84 10/01/24 13:20 Respiratory Rate 20 10/01/24 13:20 Blood Pressure 140/83 10/01/24 13:20 Pulse Oximetry 100 10/01/24 13:20 Oxygen Delivery Room Air 10/01/24 13:20 Discharge Plan Discharge Clinical Impression: Drug-induced nausea and vomiting, Dehydration Patient Disposition: Elopement After Seen by Prov Condition: Guarded Prognosis Patient Language: Macedonian Prescriptions: No Action phentermine 37.5 mg tablet 37.5 mg PO DAILY amitriptyline 25 mg tablet 25 mg PO HS alprazolam 1 mg tablet 1 mg PO TID prednisone 20 mg tablet 40 mg PO DAILY 5 Days Qty: 10 0RF cyclobenzaprine 10 mg tablet 10 mg PO TID PRN (Reason: muscle spasm) Qty: 21 0RF diclofenac potassium 50 mg tablet 50 mg PO TID PRN (Reason: pain) Qty: 30 0RF prednisone 20 mg tablet 40 mg PO DAILY 5 Days Qty: 10 0RF Follow-up/Referrals: PHYSICIAN,SECONDARY SPECIAL EDUCATION TEACHER [Primary Care Provider] -
--- NOTE | 2024-10-01 15:00 | PC.NURSE ---
Patient electing to leave, Left AC IV catheter removed-catheter intact. Patient encouraged to return for worsening symptoms. Home via pvt vehicle
--- OUTSIDE RECORDS SUMMARY | 2024-10-01 15:34 | XMS_ITS | Data Portability ---
Author Organization [facility] [employer] , [facility] Address [address] [place] [address] Care Team Providers Care Private Watchman Name Role Phone [facility]chand[facility] Assessment No assessment recorded. Plan of Treatment Reminders Order Date Submit Date Provider Last Modified By Organization Details Last Modified Time Details Appointments None recorded. Lab STI panel 2023 024 [facility], [address] [place], [address], 4 13:50:28 unlisted lab - STD screening ([facility]) 2023 024 [facility], [address] [place] [address], [address], 4 11:46:27 Referral None recorded. Procedures None recorded. Surgeries None recorded. Imaging None recorded. Medication Orders meloxicam 15 mg tablet 2023 024 [id number], [address], [place], [id number], 4 19:14:04 Patient TargetsNo targets recorded. Patient InstructionsNo instructions recorded. Reason for Referral None Reported. Results Created Date Observation Date Name Description Value Unit Range Abnormal Flag Note LastModifiedBy Organization Detail LastModifiedTime 12/09/19 24 12/09/2023 STD SCREE BROCK ([facility] ) STD screening ([facility]) No specim en receiv ed to EDWARDO as of 2023 Not Available [facility] [address] [place], [address], 12/09/2023 11:46:26 11/28/19 24 11/30/2023 STI PANEL trichomonas vaginalis TRICH POS negati ve abnormal Not Available [facility] Edwardo [address] [place], [address], 11/30/2023 13:50:28 11/28/19 24 11/30/2023 STI PANEL chlamydia trachomatis CT neg negati ve normal This repor t is inten ded for us in clini alex monit oring and manag ement of patie nts. It is not inten ded for use in medic al-le gal appli catio n. Not Available Ra[facility] Edwardo [address] [place], [address], 11/30/2023 13:50:28 11/28/19 24 11/30/2023 STI PANEL neisseria gonorrhoeae GC neg negati ve normal This repor t is inten ded for us in clini alex monit oring and manag ement of patie nts. It is not inten ded for use in medic al-le gal appli catio n. Not Available [facility] Edwardo [address] [place], [address], 11/30/2023 13:50:28 Result Notes None recorded. Problems Name Problem SNOMED Code Status Onset Date Resolution Date Notes Provider Name and Address Organization Details Recorded Time Sampling of vagina for Papanico laou smear Completed 201902/24/2021 Encounte r for gynecolo gical examinat ion (general ) (routine ) without abnormal findings ; Progress : Stable Added By: Tiffanie Prajapati Add to Current Problems : NO ProblemS tatus: Resolve Not Available [facility] 2 21:10:35 Pelvic and perineal pain 231590327 Active 2020 Pelvic and perineal pain; Progress : Stable Added By: Enedelia Royal Add to Current Problems : YES ProblemS tatus: Current Not Available [facility] 2 21:10:36 Screenin g for malignan t neoplasm of cervix Completed 201902/24/2021 Encounte r for screenin g for malignan t neoplasm of cervix; Progress : Stable Added By: Tiffanie Prajapati Add to Current Problems : NO ProblemS tatus: Resolve Not Available [facility] 2 21:10:38 Problem Notes None recorded. Procedures Surgical History Date Name Laterality Status Provider Name and Address Organization Details Recorded Time Date of Last Pap Smear completed [facility] 11/28/2023 17:25:26 Colonoscopy completed [facility] 11/28/2023 17:25:27 Imaging Results None recorded. Procedure Notes None recorded. Medical Equipment None Reported. Allergies Allergen ID Allergen Name Allergen Category Reaction Reaction Severity Criticality Documentation Date Start Date Code Code System Note Provider Name and Address Organization Details Recorded Time 603939 aspirin medicatio n Not available Not available Not available 06/18/20212019 1191 RxNorm Sever ity: Moder ate; Not Available Not Available Not Available Medications Name Sig Start Date Stop Date Status Note LastModified by Organization Details LastModified Time Mirena 21 mcg/24 hr (up to 8 years) 52 mg intrauter ine device 02/08 completed Mirena 20 mcg/24 hours (5 yrs) 52 mg Intraute rine Intraute rine Device RxNorm: [id number] Allow Substitu tion: False Refill Denied: No Refill DateOccu rred: 05/12/20 Edited by: clementine Lion onSonya ) on 02/09/20 Stopped by: clementine shanks(Eduar onSonya ) on 02/09/20 21 Not Available Not Available Not Available alprazola m 1 mg tablet TAKE 1 TABLET BY MOUTH THREE TIMES DAILY NEEDED active Not Available Not Available No t Available meloxicam 15 mg tablet TAKE 1 TABLET BY MOUTH DAILY THE WEEK OF MENSES active Not Available Not Available No t Available prednison e 20 mg tablet TAKE 2 TABLETS BY MOUTH DAILY FOR 5 DAYS active Not Available Not Available No t Available metronida zole 500 mg tablet TAKE 4 TABLETS BY MOUTH EVERY DAY active Not Available Not Available No t Available phentermi ne 37.5 mg tablet TAKE 1 TABLET BY MOUTH EVERY DAY active Not Available Not Available No t Available amoxicill in 875 mg tablet TAKE 1 TABLET BY MOUTH EVERY 12 HOURS FOR 10 DAYS active Not Available Not Available No t Available gabapenti n 300 mg capsule TAKE 1 CAPSULE BY MOUTH THREE TIMES DAILY 11/27 completed Not Available Not Available Not Available ondansetr on 4 mg disintegr ating tablet place 1 tablet (4 mg) and place on top of the tongue where it will dissolve , then swallow by translin gual route 4 times per day active ondanset roxanne 4 mg oral Tablet,d isintegr ating RxNorm: [id number] Allow Substitu tion: False Refill Denied: No Refill DateOccu rred: 02/09/20 Edited by: clementine shanks(Thornt on, Sonya ) on 02/09/20 Stopped by: clementine shanks(Thornt on, Sonya ) on Not Available Not Available Not Available ParaGard T 380A 380 square mm intrauter ine device active ParaGard T 380A 380 square mm Intraute rine Intraute rine Device RxNorm: [id number] Allow Substitu tion: False Refill Denied: No Refill DateOccu rred: 02/09/20 Edited by: clementine shanks(Thornt on, Sonya ) on 02/09/20 Stopped by: clementine shanks(Thornt on, Sonya ) on Not Available Not Available Not Available naproxen 500 mg tablet TAKE 1 TABLET BY MOUTH TWICE DAILY NEEDED FOR PAIN 11/27 completed Not Available Not Available Not Available amoxicill in 875 mg-potass ium clavulana te 125 mg tablet TAKE 1 TABLET BY MOUTH EVERY 12 HOURS FOR 10 DAYS 11/27 completed Not Available Not Available Not Available cyclobenz aprine 5 mg tablet TAKE 1 TABLET BY MOUTH THREE TIMES DAILY NEEDED 11/27 completed Not Available Not Available Not Available potassium chloride active potassiu m chloride RxNorm: [id number] Refill Denied: No Refill DateOccu rred: 02/09/20 Edited by: clementine shanks(Thornt on, Sonya ) on 02/09/20 21 Stopped by: clementine shanks(Thornt on, Sonya ) on Not Available Not Available Not Available Centrum 11/27 completed Centrum Allow Substitu tion: False Refill Denied: No Refill DateOccu rred: 05/12/20 Edited by: tonia( Tiffanie Prajapati ) on 05/12/20 20 Stopped by: tonia( Tiffanie Prajapati ) on Not Available Not Available Not Available Vitals Date Recorded Body weight Body mass index (BMI) Body height Systolic blood pressure Diastolic blood pressure Provider Name and Address Organization Details Last Updated DateTime 11/28/2023 694362.7 1 g 31.5 kg/m2 193.04 cm 120 mm[Hg] 78 mm[Hg] Alina Cobianjhoan [employer] 17:40:18 Social History Question Answer Notes LastModified by Organizat ion Details LastModified Time Tobacco Smoking Status Former Smoker Alina Bolton pedro [employer] 11/28/2023 17:25:27 What Is Your Level Of Alcohol Consumption? Occasional Information not available 11/28/2023 How Many Years Have You Consumed Alcohol? 20 Information not available 11/28/2023 Are You Blind Or Do You Have Difficulty Seeing? No Information not available 11/28/2023 Are You Currently Employed? Yes Information not available 11/28/2023 Are You Deaf Or Do You Have Serious Difficulty Hearing? No Information not available 11/28/2023 What Type Of Diet Are You Following? REGULAR Information not available 11/28/2023 When Did You Quit Smoking? 1-5yearssincel astcigarette Information not available 11/28/2023 How Many Children Do You Have? 2 Information not available 11/28/2023 Are There Any Occupational Health Risks Where You Work? Yes Information not available 11/28/2023 What Is Your Relationship Status? Information not available 11/28/2023 Are You Sexually Active? Yes Information not available 11/28/2023 At What Age Did You Start Smoking Tobacco? 18 Information not available 11/28/2023 Do You Use Any Illicit Or Recreational Drugs? No Information not available 11/28/2023 How Many Years Have You Smoked Tobacco? 12 Information not available 11/28/2023 Do You Or Have You Ever Used Any Other Forms Of Tobacco Or Nicotine? No Information not available 11/28/2023 Sex: Unknown Functional Status Question Answer Note LastModified by Organizat ion Details LastModified Time What is your exercise level? Occasional Information not available 11/28/2023 Mental Status None recorded. Family History Relationship Description Onset Age of this Age Resolved Age Notes LastModified by Organization Details LastModified Time Brother Depressive disorder [email or web address] Not available 2023 17:25:26 Sister Depressive disorder [email or web address] Not available 2023 17:25:26 Father Depressive disorder [email or web address] Not available 2023 17:25:26 Medical History Condition Response Panic Attacks Y Arthritis Y Polycystic Ovarian Syndrome Y Seasonal allergies Y ADD/ADHD Y Headaches/migraines Y GERD (reflux) Y Gynecological History Statement/Question Response Flow Moderate Frequency of Cycle (Q days) 30 Date of LMP 11/25/2023 HPV Vaccine N Date of Last Pap Smear 12/17/2020 Duration of Flow (days) 5 Current Control Method IUD Age at Menarche 17 Obstetrics History GPAL:G 3 P 2 0 1 2 Type Value Full Term 2 Spontaneous 1 Living 2 Total 3 Past Encounters Encounter ID Performer Location Encounter Start Date Encounter Closed Date Diagnosis/Indication Diagnosis SNOMED-CT Code Diagnosis ICD10 Code Diagnosis Note [id number] Roselia Bryant MD [facility] [address] [facility] [place] [address] 11/28/2023 17:03:54 11/28/2023 18:11:55 Dysmenorrhea 686453649 N94.5 discussed use of NSAIDS to reduce prostaglan dins, allergic to asa but can take other NSAIDS. Venereal d isease screening 101020300 Z11.3 Health Concerns Section Related Observation LastModified by Organization Detai ls LastModified Time None Recorded Concern Status LastModified by Organization Details LastModified Time None Recorded Advance Directives Directive None Recorded Payers Encounter Date Sequence Insurance Name Policy Number Policy Manriquez Covered Member ID Manriquez Member ID Guarantor Name 11/28/2023 1 [facility] (MEDICAID REPLACEMENT - HMO) [id number] Kayy Dorado [id number] Kayy Dorado Notes Date Note Type Note Provider Name and Address Organization Details Recorded Time 11/28/2023 text/html Kayy has bee n having issues with her cyclesTakes high dose of magnesium still has painful cramps through bodyShe will have nausea started to have issue with staying at work , moving around and lifting cause more painRight before period, she has cramps for 2 days, nausea, even feverish. Cramps radiate to her legsShe thinks it all is related to her PMSJennifer request to have STI testing Roselia Bryant MD [address] [place], [address], [facility] [employer] 11/28/2023 18:11:40 OBGyn Episode Ob Episode Information Episode Created Date Number of Fetuses Patient Bloodtype Patient rh Status Prepregnancy Weight lbs Domestic Partner Domestic Partner Phone Father Name Ride Attendant Status 11/28/19 24 1 CLOSED Fetus Data First Name Last Name Admitted to NICU Weight (g) Sex Living Outcome Pediatric Complications Fetus ID Race Codes Race Delivery Type 3968.93 M Full Term Gama Calculation Initial Gama Date Initial Exam Date Initial Exam Provider Initial Ultrasound Date Last Menstrual Period Date Ultra Sound Weeks Gestation 0 Eighteen To Twenty Week Gama Update Ultra Sound Date Fundal Height At Umbil Quickening Date Ultra Sound Latest Weeks Gestation Final Gama Confirmed By Final Gama Confirmed Date Final Gama Date Ultra Sound Latest Days Gestation 0 0 Menstrual History Last Menstrual Date Menses Monthly On Bcp Conception Prior Menses Frequency Hcg Plus Date Menarche Onset Age Delivery Information Delivery Date Delivery Type Labor Anesthesia Weeks Gestation Incision Type Labor Labor Length Hrs Delivered By Post Complications Tubal Sterilization Discharge Date Comments 8 false right to term date Discharge Information Feeding Method Contraceptive Method Maternal HG B and HCT Levels Ob Episode Information Episode Created Date Number of Fetuses Patient Bloodtype Patient rh Status Prepregnancy Weight lbs Domestic Partner Domestic Partner Phone Father Name Ride Attendant Status 11/28/19 24 1 CLOSED Fetus Data First Name Last Name Admitted to NICU Weight (g) Sex Living Outcome Pediatric Complications Fetus ID Race Codes Race Delivery Type 4082.32 8 M Full Term Gama Calculation Initial Gama Date Initial Exam Date Initial Exam Provider Initial Ultrasound Date Last Menstrual Period Date Ultra Sound Weeks Gestation 0 Eighteen To Twenty Week Gama Update Ultra Sound Date Fundal Height At Umbil Quickening Date Ultra Sound Latest Weeks Gestation Final Gama Confirmed By Final Gama Confirmed Date Final Gama Date Ultra Sound Latest Days Gestation 0 0 Menstrual History Last Menstrual Date Menses Monthly On Bcp Conception Prior Menses Frequency Hcg Plus Date Menarche Onset Age Delivery Information Delivery Date Delivery Type Labor Anesthesia Weeks Gestation Incision Type Labor Labor Length Hrs Delivered By Post Complications Tubal Sterilization Discharge Date Comments 3 false 2 weeks from due date Discharge Information Feeding Method Contraceptive Method Maternal HG B and HCT Levels Ob Episode Information Episode Created Date Number of Fetuses Patient Bloodtype Patient rh Status Prepregnancy Weight lbs Domestic Partner Domestic Partner Phone Father Name Ride Attendant Status 11/28/19 24 1 CLOSED Fetus Data First Name Last Name Admitted to NICU Weight (g) Sex Living Outcome Pediatric Complications Fetus ID Race Codes Race Delivery Type , Spontane ous Gama Calculation Initial Gama Date Initial Exam Date Initial Exam Provider Initial Ultrasound Date Last Menstrual Period Date Ultra Sound Weeks Gestation 0 Eighteen To Twenty Week Gama Update Ultra Sound Date Fundal Height At Umbil Quickening Date Ultra Sound Latest Weeks Gestation Final Gama Confirmed By Final Gama Confirmed Date Final Gama Date Ultra Sound Latest Days Gestation 0 0 Menstrual History Last Menstrual Date Menses Monthly On Bcp Conception Prior Menses Frequency Hcg Plus Date Menarche Onset Age Delivery Information Delivery Date Delivery Type Labor Anesthesia Weeks Gestation Incision Type Labor Labor Length Hrs Delivered By Post Complications Tubal Sterilization Discharge Date Comments 1 Discharge Information Feeding Method Contraceptive Method Maternal HG B and HCT Levels
--- OUTSIDE RECORDS SUMMARY | 2024-10-01 15:35 | XMS_ITS | Data Portability ---
Author Organization [place] [facility] [place] [employer], Main Office Address [address] [place] [address] Assessment Encounter Date Assessment Date Assessment LastModified by Organization Details LastModified Time 05/17/2023 05/17/2023 37-year-old female returns to clinic concerning a left 5th metatarsal [place] fracture that occurred approximately 3 months ago. Patient is doing well and has been able to transition to a regular sneaker without any issues. She does not have any tenderness along the fracture site today. She has been walking more on the outside of her foot causing some irritation over the small toe, which we discussed should improve with time as she has been walking in a stiff-soled shoe /boot for a while. she was reassured that her hip pain should improve as she normalizes her walking as well. She may return to full duty work with the option to take breaks as needed. She will follow-up in 6-8 weeks for re-evaluation. [email or web address] Not available 05/17/2023 11:25:35 07/12/2023 07/12/2023 37-year-old female presents for follow-up of her left foot and evaluation of a new complaint with her right foot. She has a base of 5th metatarsal fracture on the left side treated conservatively, and is feeling better. She is able to work at [employer] without any difficulties on the left side. She started developing pain on her right foot, which has been going on for long time and getting significantly worse ever since her left foot injury. Pain is over the mid and forefoot and over the balls of the feet. She has tried changing her shoe wear to a wider shoe, and used a arch support strap, which seems to help, she reports 2 to 3/10 pain. She has otherwise been taking ibuprofen. Physical exam: For her left foot there is no tenderness palpation of the base 5th of the 5th metatarsal. She has good ankle and foot range of motion. On her right foot, she has no tenderness over the ankle or midfoot, but does have tenderness over the 1st and 2nd metatarsal heads. She has sensation intact to light touch, 2+ DP pulse. Able to move her toes and ankle without difficulty. X-rays of the right foot were obtained reviewed, demonstrating no acute bony abnormality. Her left base of 5th metatarsal fracture is healed and she may be activities as tolerated. With regards her right side, she has metatarsalgia and I recommended using a gel pad and shoes with wide toe box. She may get that [id number] . She may continue to be activities as tolerated. We will have her follow-up on a as needed basis. She is in agreement with plan. [email or web address] Not available 07/12/2023 10:38:11 Plan of Treatment Reminders Order Date Submit Date Provider Last Modified By Organization Details Last Modified Time Details Appointments None recorded. Lab HbA1c (hemoglobin A1c), blood 2023 024 [email or web address] Not available 4 17:13:15 vitamin D3, 25-hydroxy, serum 2023 024 [email or web address] Not available 4 17:11:10 magnesium, serum or plasma 2023 024 [email or web address] Not available 4 17:11:24 vitamin B12, serum 2023 024 [email or web address] Not available 4 17:11:39 TSH, serum or plasma 2023 024 [email or web address] Not available 4 17:11:52 folate, serum 2023 024 [email or web address] Not available 4 17:12:07 CBC w/ auto diff 2023 024 [email or web address] Not available 4 17:12:22 BMP, serum or plasma 2023 024 [email or web address] Not available 4 17:12:38 iron + total iron-bindin g capacity (TIBC), serum 2023 024 [email or web address] Not available 4 17:12:51 ferritin, serum or plasma 2023 024 [email or web address] Not available 4 17:13:03 unlisted lab - urine drug abuse panel 10 2023 024 [email or web address] [facility] (Lab), [address] [place], [address], 4 08:11:21 Referral psychiatris t referral - Please call patient to schedule an appointment . Thank you. 2023 024 [email or web address] [facility], [address] [facility] [facility] [address], [place], [address], 4 16:04:59 Procedures None recorded. Surgeries None recorded. Imaging XR, foot, 3 or more view 2022 023 [email or web address] [facility] [place], [address], [place], [address], 3 11:05:48 XR, foot 2022 023 [email or web address] [facility] [place], [address], [place], [address], 3 11:35:05 Medication Orders alprazolam 1 mg tablet 2022 023 [id number], [address] [place], [place], [id number], 3 14:19:19 trazodone 50 mg tablet 2023 024 [id number], [address] [facility], [place], [place], [id number], 09:26:54 Patient TargetsNo targets recorded. Patient InstructionsNo instructions recorded. Reason for Referral Psychiatrist Referral for An xiety anxiety, currently on benzo Please call patient to schedule an appointment. Thank you. Referring Physician: Elton Sifuentes, [facility] Medicine, Encounter Date: 02/15/2024 Results Created Date Observation Date Name Description Value Unit Range Abnormal Flag Note LastModifiedBy Organization Detail LastModifiedTime 11/03/19 24 11/03/2023 CBC/C OMPLE TE BLD COUNT W/DIF F white blood cells 6.7 x10'3 /uL 4.2-10 .8 Not Available [facility] (Lab) [address] [place], [address], 11/03/2023 21:28:13 11/03/19 24 11/03/2023 CBC/C OMPLE TE BLD COUNT W/DIF F red blood cells 4.56 x10'6 /uL 3.80-5 .20 Not Available [facility] (Lab) [address] [place], [address], 11/03/2023 21:28:13 11/03/19 24 11/03/2023 CBC/C OMPLE TE BLD COUNT W/DIF F hemoglobin 13.2 g/dL 12.0-1 5.6 Not Available [facility] (Lab) [address] [place], [address], 11/03/2023 21:28:13 11/03/19 24 11/03/2023 CBC/C OMPLE TE BLD COUNT W/DIF F hematocrit 40.0 % 35.7-4 5.7 Not Available [facility] (Lab) [address] [place], [address], 11/03/2023 21:28:13 11/03/19 24 11/03/2023 CBC/C OMPLE TE BLD COUNT W/DIF F mean red cell volume 87.7 fL 82.0-9 9.0 Not Available [facility] (Lab) [address] [place], [address], 11/03/2023 21:28:13 11/03/19 24 11/03/2023 CBC/C OMPLE TE BLD COUNT W/DIF F mean red cell hemoglobin 28.9 pg 27.0-3 3.0 Not Available [facility] (Lab) [address] [place], [address], 11/03/2023 21:28:13 11/03/19 24 11/03/2023 CBC/C OMPLE TE BLD COUNT W/DIF F mean RBC HGB concentratio n 33.0 g/dL 31.0-3 6.0 Not Available [facility] (Lab) [address] [place], [address], 11/03/2023 21:28:13 11/03/19 24 11/03/2023 CBC/C OMPLE TE BLD COUNT W/DIF F red cell distribution width 13.4 % 11.8-1 5.5 Not Available [facility] (Lab) [address] [place], [address], 11/03/2023 21:28:13 11/03/19 24 11/03/2023 CBC/C OMPLE TE BLD COUNT W/DIF F platelets 230 x10'3 /uL 150-40 0 Not Available [facility] (Lab) [address] [place], [address], 11/03/2023 21:28:13 11/03/19 24 11/03/2023 CBC/C OMPLE TE BLD COUNT W/DIF F mean platelet volume 11.8 fL 9.0-12 .4 Not Available [facility] (Lab) [address] [place], [address], 11/03/2023 21:28:13 11/03/19 24 11/03/2023 CBC/C OMPLE TE BLD COUNT W/DIF F neutrophils 60.6 % 39.0-7 2.0 Not Available [facility] (Lab) [address] [place], [address], 11/03/2023 21:28:13 11/03/1911/03/2023 CBC/C OMPLE TE BLD COUNT W/DIF F lymphocytes 28.0 % 16.0-4 7.0 Not Available [facility] (Lab) [address] [place], [address], 11/03/2023 21:28:13 11/03/19 24 11/03/2023 CBC/C OMPLE TE BLD COUNT W/DIF F monocytes 7.8 % 5.0-12 .0 Not Available [facility] (Lab) [address] [place], [address], 11/03/2023 21:28:13 11/03/19 24 11/03/2023 CBC/C OMPLE TE BLD COUNT W/DIF F eosinophils 2.8 % 1.0-7. 0 Not Available [facility] (Lab) [address] [place], [address], 11/03/2023 21:28:13 11/03/19 24 11/03/2023 CBC/C OMPLE TE BLD COUNT W/DIF F basophils 0.7 % 0.0-2. 0 Not Available [facility] (Lab) [address] [place], [address], 11/03/2023 21:28:13 11/03/19 24 11/03/2023 CBC/C OMPLE TE BLD COUNT W/DIF F immature granulocytes 0.1 % 0.00-0 .50 Not Available [facility] (Lab) [address] [place], [address], 11/03/2023 21:28:13 11/03/19 24 11/03/2023 CBC/C OMPLE TE BLD COUNT W/DIF F neutrophils, absolute count 4.03 x10'3 /uL 1.5-8. 0 Not Available [facility] (Lab) [address] [place], [address], 11/03/2023 21:28:13 11/03/19 24 11/03/2023 CBC/C OMPLE TE BLD COUNT W/DIF F lymphocytes, absolute count 1.87 x10'3 /uL 1.07-3 .43 Not Available [facility] (Lab) [address] [place], [address], 11/03/2023 21:28:13 11/03/19 24 11/03/2023 CBC/C OMPLE TE BLD COUNT W/DIF F monocytes, absolute count 0.52 x10'3 /uL 0.29-0 .99 Not Available [facility] (Lab) [address] [place], [address], 11/03/2023 21:28:13 11/03/19 24 11/03/2023 CBC/C OMPLE TE BLD COUNT W/DIF F eosinophils, absolute count 0.19 x10'3 /uL 0.02-0 .53 Not Available [facility] (Lab) [address] [place], [address], 11/03/2023 21:28:13 11/03/19 24 11/03/2023 CBC/C OMPLE TE BLD COUNT W/DIF F basophils, absolute count 0.05 x10'3 /uL 0.01-0 .08 Not Available [facility] (Lab) [address] [place], [address], 11/03/2023 21:28:13 11/03/19 24 11/03/2023 CBC/C OMPLE TE BLD COUNT W/DIF F immature granulocytes ,absolute 0.01 x10'3 /uL 0.00-0 .05 Not Available [facility] (Lab) [address] [place], [address], 11/03/2023 21:28:13 11/03/19 24 11/03/2023 CBC/C OMPLE TE BLD COUNT W/DIF F nucleated red blood cells 0.0 % -0 Not Available [facility] (Lab) [address] [place], [address], 11/03/2023 21:28:13 11/03/19 24 11/03/2023 CBC/C OMPLE TE BLD COUNT W/DIF F NRBC# 0.00 x10'3 /uL Not Available [facility] (Lab) [address] [place], [address], 11/03/2023 21:28:13 11/03/19 24 11/03/2023 MAGNE SIUM magnesium 1.9 mg/dL 1.6-2. 3 Not Available [facility] (Lab) [address] [place], [address], 11/03/2023 21:53:18 11/03/19 24 11/03/2023 BASIC METAB OLIC PANEL sodium 141 mmol/ L 137-14 5 Not Available [facility] (Lab) [address] [place], [address], 11/03/2023 21:53:23 11/03/19 24 11/03/2023 BASIC METAB OLIC PANEL potassium 3.7 mmol/ L 3.5-5. 1 Not Available [facility] (Lab) [address] [place], [address], 11/03/2023 21:53:23 11/03/19 24 11/03/2023 BASIC METAB OLIC PANEL chloride 108 mmol/ L 98-107 high Not Available [facility] (Lab) [address] [place], [address], 11/03/2023 21:53:23 11/03/19 24 11/03/2023 BASIC METAB OLIC PANEL carbon dioxide 26 mmol/ L 22-30 Not Available [facility] (Lab) [address] [place], [address], 11/03/2023 21:53:23 11/03/19 24 11/03/2023 BASIC METAB OLIC PANEL anion gap 10.7 mmol/ L 14-22 low Not Available [facility] (Lab) [address] [place], [address], 11/03/2023 21:53:23 11/03/19 24 11/03/2023 BASIC METAB OLIC PANEL glucose 96 mg/dL 70-99 Not Available [facility] (Lab) [address] [place], [address], 11/03/2023 21:53:23 11/03/19 24 11/03/2023 BASIC METAB OLIC PANEL BUN 16 mg/dL 8-19 Not Available [facility] (Lab) [address] [place], [address], 11/03/2023 21:53:23 11/03/19 24 11/03/2023 BASIC METAB OLIC PANEL creatinine 0.66 mg/dL 0.66-1 .25 Not Available [facility] (Lab) [address] [place], [address], 11/03/2023 21:53:23 11/03/19 24 11/03/2023 BASIC METAB OLIC PANEL GFR >60 Refer ence Range : Bazine ge GFR Healt hy Adult : >60 mL/mi n/1.7 3 m2 Chron ic Kidne y Disea se: 15-60 mL/mi n/1.7 3 m2 Kidne y Failu re: <15/m L/min /1.73 m2 www.n iddk. nih.g ov The MDRD study equat ion has not been valid ated in child fredy <18 years of age; pregn ant women ; the elder ly >85 years of age; or in some racia l or ethni c subgr oups, such as Hispa nics. Outsi de the valid ated allison eters , estim ated GFR is less accur ate, requi ring clini alex judgm ent on a case- by-ca se basis . Clini alex inter preta tion for other races and ages must be made by the clini candi. The MDRD study equat ion has not been valid ated for the evalu ation of serum creat inine relat ed to nutri gibran l statu s or medic ation usage . For perso ns <18 years of age, a pedia tric GFR calcu lator is avail able on the [facility] websi te: https ://ww w.kid carmen.o rg/pr ofess ional s/kdo qi/gf r_cal culat or Not Available [facility] (Lab) [address] [place], [address], 11/03/2023 21:53:23 11/03/19 24 11/03/2023 BASIC METAB OLIC PANEL calcium 9.9 mg/dL 8.4-10 .2 Not Available [facility] (Lab) [address] [place], [address], 11/03/2023 21:53:23 11/03/19 24 11/03/2023 IRON/ TIBC PANEL total iron binding capacity 348 mcg/d L 265-47 5 Not Available [facility] (Lab) [address] [place], [address], 11/03/2023 22:00:38 11/03/19 24 11/03/2023 IRON/ TIBC PANEL % transferrin saturation 26 % 20-[address] [facility] (Lab) [address] [place], [address], 11/03/2023 22:00:38 11/03/19 24 11/03/2023 IRON/ TIBC PANEL unsaturated iron bind capacity 257 mcg/d L 126-38 2 Not Available [facility] (Lab) [address] [place], [address], 11/03/2023 22:00:38 11/03/19 24 11/03/2023 IRON/ TIBC PANEL iron 91 mcg/d L 42-175 Not Available [facility] (Lab) [address] [place], [address], 11/03/2023 22:00:38 11/03/19 24 11/03/2023 HEMOG LOBIN A1C HA1C 5.1 % 4.0-6. 0 Diabe rosie Scree rosy Crite romina: <5.7% Consi stent with absen ce of diabe rosie 5.7-6 .4% Consi stent with incre ased risk for diabe rosie (pred iabet es) >OR=6 .5% Consi stent with diabe rosie REFER ENCE: Diabe rosie Care 2016, 39(Waggoner ppl.1 ):s13 -s22 Not Available [facility] (Lab) [address] [place], [address], 11/03/2023 22:19:05 11/03/19 24 11/03/2023 VITAM IN D 25-HY DROXY vd25oh 37.4 NG/mL 30-100 Vitam in D Statu s: Defic ient: <20 ng/mL Insuf ficie nt: 20-29 ng/mL Suffi cient : 30-10 0 ng/mL Not Available [facility] (Lab) [address] [place], [address], 11/03/2023 22:19:25 11/03/19 24 11/03/2023 VITAM IN B12 (KALE DARCIE ) vb12 531 pg/mL 239-93 1 Not Available [facility] (Lab) [address] [place], [address], 11/03/2023 23:16:16 11/03/19 24 11/03/2023 FOLAT E, SERUM /PLAS MA folate 5.40 NG/mL 2.76-2 0.0 Not Available [facility] (Lab) [address] [place], [address], 11/03/2023 23:16:17 11/03/19 24 11/03/2023 TSH thyroid-stim ulating hormone 1.090 uIU/m L 0.465- 4.680 Not Available [facility] (Lab) [address] [place], [address], 11/03/2023 23:17:07 11/03/19 24 11/03/2023 MONICA TIN ferritin 40 NG/mL 6.24-1 37 Not Available [facility] (Lab) [address] [place], [address], 11/03/2023 23:17:12 04/18/20 23 XR, foot, 3 or more view No observ ation record ed. [email or web address] [facility] [place] [address], [place], [address], 04/18/2023 09:12:11 05/17/20 23 XR, foot, 3 or more view No observ ation record ed. [email or web address] [facility] [place] [address], [place], [address], 05/17/2023 11:25:11 07/12/20 23 XR, foot No observ ation record ed. [email or web address] [facility] [place] [address] [facility] [address], [place], [address], 07/12/2023 09:08:47 Result Notes None recorded. Problems Name Problem SNOMED Code Status Onset Date Resolution Date Notes Provider Name and Address Organization Details Recorded Time Abnormal weight gain 732806748 Active Not Available [employer] 3 02:50:27 Backache 267180303 Active Not Available [employer] 3 02:50:27 Headache 23791614 Active Not Available [employer] 3 02:50:27 Knee pain Active Not Available [employer] 3 02:50:27 Vitamin D deficiency 30181034 Active 2017 Not Available [employer] 3 02:50:27 Obesity 513139789 Active Not Available [facility] 3 02:50:28 Neck pain 27728438 Active 2022 Josette Salas MD [address], [place], [address] , [place] [facility] 3 10:06:41 Cyclical vomiting syndrome 44441081 Active 2022 Josette Salas MD [address], [place], [address] , [place] [facility] 3 17:32:39 Anxiety 45998818 Active 2022 Josette Salas MD [address], [place], [address] , [facility] 3 17:32:58 Dental abscess 071803863 Active 2022 Josette Salas MD [address], [place], [address] , [facility] 3 10:55:41 Injury of left foot 2033796577322 9108 Active 2022 MALLORY Johnson [address], [place], [address] , [place] [facility] 3 11:09:20 Pain in left foot 1005689639405 07 Active 2022 PHUONG Watt, [place] [facility] 3 11:39:08 Postconcus merly syndrome 71844824 Active 2022 Josette Salas MD [address], [place], [address] , [facility] 3 07:47:41 Pain in right foot 0722694605301 07 Active 2022 PHUONG Watt, [place] [facility] [place] [facility] 3 09:08:39 Spasm 45614718 Active 2023 Josette Salas MD [address], [place], [address] , [place] - [employer] 16:44:22 Srikanth mikki 32042257 Active 2023 Josette Salas MD [address], [place], [address] , [place] [employer] 16:45:00 Insomnia 288408770 Active 2023 MELISSA Jennings [address] [facility] [address], [place], [address] , [place] [employer] 09:24:55 Problem Notes None recorded. Procedures Surgical History None recorded. Imaging Results Imaging Date Name Status LastModified by Organiz ation Details LastModified Time 04/18/2023 XR, foot, 3 or more view completed [email or web address] [facility] [place] [address] [facility] [address], [place], [address], 04/18/2023 09:12:11 05/17/2023 XR, foot, 3 or more view completed [email or web address] [facility] [place] [address] [facility] [address], [place], [address], 05/17/2023 11:25:11 07/12/2023 XR, foot completed [email or web address] [facility] [place] [address] [facility] [address], [place], [address], 07/12/2023 09:08:47 Procedure Notes None recorded. Medical Equipment None Reported. Allergies Allergen ID Allergen Name Allergen Category Reaction Reaction Severity Criticality Documentation Date Start Date Code Code System Note Provider Name and Address Organization Details Recorded Time 4734 aspirin medicatio n nausea moderate Not available 10/26/2022 1191 RxNorm cold and shaky Desiree Guillermo, [employer] 5 [employer] null, [place] - [facility] [employer] 3 11:35:10 Medications Name Sig Start Date Stop Date Status Note LastModified by Organization Details LastModified Time cyclobenzap rine 10 mg tablet TAKE 1 TABLET BY MOUTH THREE TIMES DAILY NEEDED FOR MUSCLE SPASM active Not Available Not Available No t Available neomycin-po lymyxin-hyd rocort 3.5 mg/mL-10,00 0 unit/mL-1 % ear solution INSTILL 4 DROPS INTO AFFECTED EAR(S) BY OTIC ROUTE 3 TIMES PER DAY x 10 days active Not Available Not Available No t Available potassium chloride ER 10 mEq capsule,ext ended release TAKE 4 CAPSULES BY MOUTH TWICE DAILY FOR 4 DAYS 05/24 completed Not Available Not Available Not Available clindamycin HCl 300 mg capsule Take 1 capsule every 6 hours by oral route for 7 days. 03/05 completed Not Available Not Available Not Available loperamide 2 mg capsule 05/31 completed Not Available Not Available Not Available trazodone 50 mg tablet TAKE 1 TABLET BY MOUTH EVERY DAY active Not Available Not Available No t Available Topamax 25 mg tablet Take 1 tablet twice a day by oral route. active Not Available Not Available No t Available azithromyci n 250 mg tablet TAKE 2 TABLETS (500 MG) BY ORAL ROUTE ONCE DAILY FOR 1 DAY THEN 1 TABLET (250 MG) BY ORAL ROUTE ONCE DAILY FOR 4 DAYS active Not Available Not Available No t Available alprazolam 1 mg tablet TAKE 1 TABLET BY MOUTH THREE TIMES DAILY NEEDED active Not Available Not Available No t Available Lidocaine Viscous 2 % mucosal solution 11/05 completed Not Available Not Available Not Available benzonatate 200 mg capsule Take 1 capsule 3 times a day by oral route as needed. active Not Available Not Available No t Available valacyclovi r 1 gram tablet Take 2 tablets every 12 hours by oral route for 1 day. 03/21 completed Not Available Not Available Not Available hydrocodone 5 mg-acetamin ophen 325 mg tablet TK ONE T PO Q 6 H PRN P 05/11 completed Not Available Not Available Not Available meloxicam 15 mg tablet TAKE 1 TABLET BY MOUTH DAILY THE WEEK OF MENSES active Not Available Not Available No t Available sucralfate 1 gram tablet TK 1 T PO QID 01/13 completed Not Available Not Available Not Available ondansetron HCl 4 mg tablet TAKE 1 TABLET BY MOUTH EVERY 8 HOURS 05/31 completed Not Available Not Available Not Available prednisone 20 mg tablet TAKE 2 TABLETS BY MOUTH DAILY FOR 5 DAYS active Not Available Not Available No t Available sumatriptan 50 mg tablet Take one tablet at onset of symptoms, may repeat in 2 hours x 1 dose if needed active Not Available Not Available No t Available penicillin V potassium 500 mg tablet TK 1 T PO Q 8 H 08/08 completed Not Available Not Available Not Available metronidazo le 500 mg tablet TAKE 4 TABLETS BY MOUTH EVERY DAY active Not Available Not Available No t Available hydroxyzine HCl 50 mg tablet TK 1 T PO QID PRN 04/12 completed Not Available Not Available Not Available phentermine 37.5 mg tablet TAKE 1 TABLET BY MOUTH EVERY DAY active Not Available Not Available No t Available prochlorper azine maleate 10 mg tablet TK 1 T PO BID PRF NAUSEA OR VOMITING active Not Available Not Available No t Available acyclovir 400 mg tablet Take 1 tablet every 8 hours by oral route for 7 days. active Not Available Not Available No t Available ciprofloxac in 500 mg tablet TK 1 T PO BID 04/12 completed Not Available Not Available Not Available omeprazole 40 mg capsule,del ayed release TAKE 1 CAPSULE BY MOUTH TWICE DAILY 03/03 completed Not Available Not Available Not Available tramadol 50 mg tablet 01/31 completed Not Available Not Available Not Available ketorolac 30 mg/mL (1 mL) injection solution Inject 1 mL as needed by intramusc ular route. 08/23 completed Not Available Not Available Not Available ondansetron 8 mg disintegrat ing tablet Place 1 tablet twice a day by transling ual route as needed. active Not Available Not Available No t Available alprazolam 0.5 mg tablet 1 tab po bid prn anxiety 01/31 completed Not Available Not Available Not Available amoxicillin 875 mg tablet TAKE 1 TABLET BY MOUTH EVERY 12 HOURS FOR 10 DAYS active Not Available Not Available No t Available potassium chloride ER 20 mEq tablet,exte nded release(par t/cryst) TK 1 T PO D 05/31 completed Not Available Not Available Not Available famotidine 20 mg tablet 01/13 completed Not Available Not Available Not Available amitriptyli ne 25 mg tablet TAKE 1 TABLET BY MOUTH EVERY NIGHT AT BEDTIME 03/03 completed Not Available Not Available Not Available dicyclomine 20 mg tablet TAKE 1 TABLET BY MOUTH THREE TIMES DAILY 05/31 completed Not Available Not Available Not Available Kenalog 10 mg/mL suspension for injection In office injection administe red by the provider 11/04 [facility]- [phone]- [facility] Not Available Not Available Not Available lorazepam 2 mg tablet Take 1 tablet 3 times a day by oral route. 04/21 completed Not Available Not Available Not Available prochlorper azine 25 mg rectal suppository 01/13 completed Not Available Not Available Not Available pantoprazol e 40 mg tablet,lizzy yed release TK 1 T PO D 04/12 completed Not Available Not Available Not Available promethazin e 25 mg tablet TK 1 T PO Q 4 H 05/31 completed Not Available Not Available Not Available diclofenac potassium 50 mg tablet TAKE 1 TABLET BY MOUTH THREE TIMES DAILY NEEDED FOR PAIN active Not Available Not Available No t Available gabapentin 300 mg capsule TAKE 1 CAPSULE BY MOUTH THREE TIMES DAILY 11/02 completed Not Available Not Available Not Available omeprazole 20 mg capsule,del ayed release TAKE 1 CAPSULE BY MOUTH EVERY DAY DIRECTED active Not Available Not Available No t Available diclofenac sodium 50 mg tablet,lizzy yed release Take 1 tablet twice a day by oral route as needed for 30 days. active Not Available Not Available No t Available ergocalcife rol (vitamin D2) 1,250 mcg (50,000 unit) capsule Take 1 capsule every week by oral route. 01/13 completed Not Available Not Available Not Available lorazepam 1 mg tablet TAKE 1 TABLET BY MOUTH THREE TIMES DAILY NEEDED ANXIETY 05/24 completed Not Available Not Available Not Available methylpredn isolone 4 mg tablets in a dose pack TK UTD WITH MEALS 04/12 completed Not Available Not Available Not Available ondansetron 4 mg disintegrat ing tablet DIS ONE T PO Q 8 H PRF NAUSEA 05/31 completed Not Available Not Available Not Available cefdinir 300 mg capsule TK ONE C PO Q 12 H 04/12 completed Not Available Not Available Not Available fluticasone propionate 50 mcg/actuati on nasal spray,suspe nsion [place] 1 spray every day by intranasa l route for 30 days. 01/13 completed Not Available Not Available Not Available sertraline 50 mg tablet TK 1 T PO D 01/13 completed Not Available Not Available Not Available dicyclomine 10 mg capsule 01/13 completed Not Available Not Available Not Available loratadine 10 mg tablet Take 1 tablet every day by oral route. 04/12 completed Not Available Not Available Not Available naproxen 500 mg tablet TAKE 1 TABLET BY MOUTH TWICE DAILY NEEDED FOR PAIN 03/03 completed Not Available Not Available Not Available metoclopram ana 10 mg tablet TK 1 T PO TID PRN N active Not Available Not Available No t Available amoxicillin 875 mg-potassiu m clavulanate 125 mg tablet TAKE 1 TABLET BY MOUTH EVERY 12 HOURS FOR 10 DAYS 03/03 completed Not Available Not Available Not Available nicotine 7 mg/24 hr daily transdermal patch Apply 1 patch every day by transderm al route. active Not Available Not Available No t Available escitalopra m 10 mg tablet TAKE 1 TABLET BY MOUTH EVERY DAY active Not Available Not Available No t Available cyclobenzap rine 5 mg tablet TAKE 1 TABLET BY MOUTH THREE TIMES DAILY NEEDED 11/02 completed Not Available Not Available Not Available naproxen OTC 04/12 completed Not Available Not Available Not Available ParaGard T 380A 03/03 completed Not Available Not Available Not Available Mirena 05/24 completed Not Available Not Available Not Available lidocaine (PF) 10 mg/mL (1 %) injection solution In office injection administe red by the provider 11/04 completed [facility]: [id number] Not Available Not Available Not Available Vitals Date Recorded Body height Body mass index (BMI) Body weight Pain severity - 0-10 verbal numeric rating [Score] - Reported Provider Name and Address Organization Details Last Updated DateTime 05/17/2023 193.04 cm 32.3 kg/m2 386641.98 g 2 SHASHA Escobar [employer] 05/17/2023 09:17:46 Date Recorded Body height Body mass index (BMI) Body weight Body temperature Heart rate Oxygen saturation Oxygen saturation in Arterial blood by Pulse oximetry Provider Name and Address Organization Details Last Updated DateTime 193.04 cm 33.6 kg/m2 319794. 49 g 97.8 [degF] 93 /min 98 % 98 % Yudelka Briggs RN [employer] 3 14:11:53 Date Recorded Systolic blood pressure Diastolic blood pressure Provider Name and Address Organization Details Last Updated DateTime 06/29/2023 138 mm[Hg] 82 mm[Hg] Josette Salas MD [address], [facility] [address], [place], [address], [facility] [employer] 06/29/2023 14:17:52 Date Recorded Body height Body mass index (BMI) Body weight Provider Name and Address Organization Details Last Updated DateTime 07/12/2023 193.04 cm 32.9 kg/m2 004481.94 g Desiree LiCRISTELAA [facility] [employer] 07/12/2023 09:07:58 Date Recorded Body height Body mass index (BMI) Body weight Body temperature Heart rate Oxygen saturation Oxygen saturation in Arterial blood by Pulse oximetry Systolic blood pressure Diastolic blood pressure Provider Name and Address Organization Details Last Updated DateTime 4 193.04 cm 31 kg/m2 823545. 05 g 98 [degF] 89 /min 98 % 98 % 130 mm[Hg] 86 mm[Hg] Jennifer Qureshi RN [facility] [employer] 4 16:27:22 Date Recorded Body height Body mass index (BMI) Body weight Body temperature Heart rate Oxygen saturation Oxygen saturation in Arterial blood by Pulse oximetry Systolic blood pressure Diastolic blood pressure Provider Name and Address Organization Details Last Updated DateTime 4 193.04 cm 31 kg/m2 934470. 05 g 98.4 [degF] 83 /min 99 % 99 % 134 mm[Hg] 82 mm[Hg] Jennifer Qureshi RN [facility] [employer] [facility] 4 09:08:13 Social History Question Answer Notes LastModified by Organizat ion Details LastModified Time Tobacco Smoking Status Former Smoker quit [address] [place], [place] [employer] [facility] (formerly [employer]) 05/17/2023 09:14:50 What Is Your Level Of Alcohol Consumption? Occasional Information not available 03/03/2023 In The 14 Days Before Symptom Onset, Have You Had Close Contact With A Laboratory-confir med COVID-19 While That Case Was Ill? No Information not available 05/17/2023 In The 14 Days Before Symptom Onset, Have You Had Close Contact With A Person Who Is Under Investigation For COVID-19 While That Person Was Ill? No Information not available 05/17/2023 What Type Of Diet Are You Following? REGULAR [id number] Information not available 10/26/2022 When Did You Quit Smoking? 1-5yearssincel gabino Information not available 05/17/2023 What Was The Date Of Your Most Recent Tobacco Screening? 05/24/2021 Information not available 05/17/2023 Do You Use Your Seat Belt Or Car Seat Routinely? Yes Information not available 05/17/2023 Do You Participate In Social Media? Yes Information not available 05/17/2023 Do You Feel Stressed (tense, Restless, Nervous, Or Anxious, Or Unable To Sleep At Night)? [id number] Information not available 05/17/2023 Do You Use Any Illicit Or Recreational Drugs? No Information not available 05/17/2023 Have You Used IV Drugs? No Information not available 05/17/2023 Do You Have Any Dietary Restrictions? No Information not available 05/17/2023 Sex: Unknown Functional Status Question Answer Note LastModified by Organization D etails LastModified Time What is your exercise level? None [email or web address] Information not available 02/22/2023 Mental Status None recorded. Family History Relationship Description Onset Age of this Age Resolved Age Notes LastModified by Organization Details LastModified Time Unspecified Relation Heart disease dad's side Not available 03/03/2023 11:36:11 Father Hypertensive disorder [email or web address] Not available 2022 11:36:33 Maternal Grandmother Diabetes mellitus [email or web address] Not available 2022 11:36:48 Medical History Condition Response ULCERS Y ARTHRITIS Y USE OF NSAIDS Y ANEMIA/BLOOD DISORDER Y Gynecological History Statement/Question Response Abnormal Pap N Sexually Active? Y Dislike of Light during Menstrual Headac he N Menses Monthly Y STIs/STDs N Current Control Method IUD Desired Control Method IUD Breast Problems none Discharge none Obstetrics History GPAL:G 0 P 0 0 0 0 Immunizations Vaccine Type Date Status Note Provider Nam e and Address Organization Details Recorded Time Influenza, split virus, quadrivalent, preservative 7 completed Not Available [facility] 10/26/2022 03:00:09 Past Encounters Encounter ID Performer Location Encounter Start Date Encounter Closed Date Diagnosis/Indication Diagnosis SNOMED-CT Code Diagnosis ICD10 Code Diagnosis Note [id number] [facility] [place] [address] [place] [address] 05/24/2021 00:00:00 05/24/2021 14:15:07 [id number] [facility] [place] [address] [place] [address] 06/11/2021 00:00:00 06/11/2021 17:11:41 [id number] [facility] [place] [address] [place] [address] 08/23/2021 00:00:00 08/23/2021 11:31:21 [id number] [facility] [place] [address] [place] [address] 11/23/2021 00:00:00 11/23/2021 14:23:59 [id number] [facility] [place] [address] [place] [address] 05/31/2022 00:00:00 05/31/2022 15:12:28 [id number] [facility] [place] [address] [place] [address] 07/12/2022 00:00:00 07/12/2022 11:13:23 [id number] [facility] [place] [address] [place] [address] 09/05/2022 00:00:00 09/05/2022 09:02:35 [id number] Josette Salas MD [facility] [place] [address] [place] [address] 12/05/2022 09:49:35 12/05/2022 10:12:35 Neck pain 34357692 M54.2 V89.2XXD M25.511 improvingc ontinue to observeok to continue muscle relaxers prn, may cause drowsiness massage and heat prn Dietary ma nagement surveillance 256569342 Z71.3 stablegood improvemen tf/u in 3 months or sooner if needed [id number] Josette Salas MD [facility] [address] [facility] [address] [place] [address] 01/04/2023 10:27:07 01/04/2023 11:01:07 Dental abscess 494541243 K04.7 salt water garglessee dentist as soon as possibleca ll/return if no improvemen t in 1-2 days or sooner if neededrevi ewed s/s that warrant urgent/liv rgent eval in meantime [id number] MALLORY Johnson [facility] Primary Care [facility] [address] [facility] [address] [place] [address] 02/22/2023 10:47:25 02/22/2023 11:19:51 Injury of left foot 2380730478 5470982 S99.922A XR 02/12/23 at - showed soft tissue swelling over the base of the fifth metatarsal with underlying nonspecifi c cortical thinning and lucency of the lateral diametaphy seal area of the fifth metatarsal bone; recommende d MR foot evaluation Will put in orders for MRI and referral to ortho for continued follow-up. Advised to remain in post-op shoe, ice/elevat ion for swelling/c omfort. [id number] Thony Noyola MD [facility] [address] [place] [address] 03/03/2023 11:13:45 03/03/2023 12:18:53 Pain in left foot 4846524277 50246 M79.672 [id number] Thony Noyola MD [facility] [address] [place] [address] 03/28/2023 09:02:13 03/28/2023 09:41:58 Injury of left foot 5219141136 0981403 S99.922A [id number] Josette Salas MD [facility] Primary Care [facility] [address] [facility] [address] [place] [address] 03/30/2023 12:22:56 03/30/2023 12:42:28 Anxiety 82412907 F41.9 stableUDS appropriat e ef ill given (#60 to complete the partial fill, typically gets #90 per day))[place] prescript[place] website reviewed Injury of left foot 1185 442350 3912138 S99.922A follow with Dr Noyolatrial of gabapentin 300 mg po tid, will start with 1 per day and titrate upreviewed with potential med s/e and how to use properlyf/ u in 3 months or sooner if needed [id number] Thony Noyola MD [facility] [address] [place] [address] 04/18/2023 09:09:19 04/18/2023 09:31:59 Injury of left foot 8973777665 9600151 S99.922D Pain in left foot 454252 0654 05103 M79.046 [id number] MALLORY Omer [facility] [address] [place] [address] 05/17/2023 09:13:57 05/17/2023 09:43:51 Injury of left foot 7877180619 0006090 S99.922D [id number] Josette Salas MD [facility] Primary Care [facility] [address] [facility] [address] [place] [address] 06/29/2023 14:07:18 06/29/2023 14:20:12 Anxiety 48752469 F41.9 stableUDS appropriat e 05/2022[place] prescript[place] website reviewedPt understand s this medication has risk for abuse/depe ndence and agrees to take it only as prescribed and to guard from loss/theft Dietary ma nagement surveillance 011727750 Z71.3 stablegood improvemen tf/u in 3 months or sooner if needed [id number] Thony Noyola MD [facility] [address] [place] [address] 07/12/2023 08:59:24 07/12/2023 09:40:22 Pain in left foot 2203847409 85974 M79.672 Pain in right foot 14233 11716 77416 M79.850 [id number] Josette Salas MD [facility] Primary Care [facility] [address] [place] [address] 11/03/2023 16:20:34 11/03/2023 16:53:45 Vitamin D deficiency 78511621 E55.9 Spasm 88838198 R25.2 check labs, if normal, consider neurology Hyperglycemia 59911742 R 73.9 [id number] MELISSA Jennings [facility] Primary Care [facility] [address] [facility] [address] [place] [address] 02/15/2024 09:01:42 02/15/2024 09:29:31 Anxiety 54328382 F41.9 Drug of abuse screen 897 74652 Z02.83 Insomnia 666350784 G47.0 0 Health Concerns Section Related Observation LastModified by Organization Detai ls LastModified Time None Recorded Concern Status LastModified by Organization Details LastModified Time None Recorded Advance Directives Directive None Recorded Payers Encounter Date Sequence Insurance Name Policy Number Policy Manriquez Covered Member ID Manriquez Member ID Guarantor Name 05/17/2023 1 [place] [facility] (MEDICAID REPLACEMENT - HMO) [id number] Kayy N Estrada [id number] Kayy N Estrada 06/29/2023 1 [place] [facility] (MEDICAID REPLACEMENT - HMO) [id number] Kayy N Estrada [id number] Kayy N Estrada 07/12/2023 1 [place] [facility] (MEDICAID REPLACEMENT - HMO) [id number] Kayy N Estrada [id number] Kayy N Estrada 11/03/2023 1 [place] [facility] (MEDICAID REPLACEMENT - HMO) [id number] Kayy N Estrada [id number] Kayy N Estrada 02/15/2024 1 [facility] (MEDICAID REPLACEMENT - HMO) [id number] Kayy Dorado [id number] Kayy Dorado Notes Date Note Type Note Provider Name and Address Organization Details Recorded Time 05/17/2023 text/html 37-year-old david garcia returns to the clinic concerning a left 5th metatarsal [place] fracture that occurred approximately 3 months ago. Since her last visit she has been transitioning from her stiff-soled shoe into flat sneakers. She denies having any pain although notes that she has been walking more so on the outside of her foot and causing some irritation to her pinky is bilaterally. She also notes having some left hip pain due to the altered walking. MALLORY Omer [address] [facility], [facility] [address], [place], [address], [employer] 05/17/2023 11:25:53 06/29/2023 text/html Here to f/u on anxiety, taking alprazolam 1 mg po TID, no selling/lending/sha ring, no heavy etoh, no illegal drug use. She has fracture of left foot that she is seeing ortho for, she is struggling with pain, chivo when weightbearing at work. update 06/29/23: Here to f/u on anxiety, taking alprazolam 1 mg po TID, no selling/lending/sha ring, no heavy etoh, no illegal drug use. Josette Salas MD [address] [facility], [facility] [address], [place], [address], [employer] 06/29/2023 14:19:34 11/03/2023 text/html For the past 3 months, one week before her period. She will get cramps that start in the legs and radiates up through the body. Spasms are recurrent, movement makes it worse. She takes her alprazolam and supplement and soaks in epsom salt bath. Lasts for 2 days or longer, has had to miss work recently due to it. She does have mood changes. No hot flashes. She does sweat at night, but this is unchanged. Periods are regular. She has paragard in place. take magensium, potassium, and women's MVI every day She has been losing weight and gaining muscle. 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 [address] [facility], [facility] [address], [place], [address], [employer] 02/15/2024 09:35:27 OBGyn Episode Ob Episode Information Episode Created Date Number of Fetuses Patient Bloodtype Patient rh Status Prepregnancy Weight lbs Domestic Partner Domestic Partner Phone Father Name Baton Twirler Status 01/05/20 1 CLOSED Fetus Data First Name Last Name Admitted to NICU Weight (g) Sex Living Outcome Pediatric Complications Fetus ID Race Codes Race Delivery Type Full Term 176 Gama Calculation Initial Gama Date Initial Exam [...] Complications Tubal Sterilization Discharge Date Comments 3 Discharge Information Feeding Method Contraceptive Method Maternal HG B and HCT Levels Ob Episode Information Episode Created Date Number of Fetuses Patient Bloodtype Patient rh Status Prepregnancy Weight lbs Domestic Partner Domestic Partner Phone Father Name Baton Twirler Status 01/05/20 23 1 CLOSED Fetus Data First Name Last Name Admitted to NICU Weight (g) Sex Living Outcome Pediatric Complications Fetus ID Race Codes Race Delivery Type Full Term 175 Gama Calculation Initial Gama Date Initial Exam [...] Complications Tubal Sterilization Discharge Date Comments 8 Discharge Information Feeding Method Contraceptive Method Maternal HG B and HCT Levels
--- OUTSIDE RECORDS SUMMARY | 2024-10-01 15:35 | XMS_ITS | Clinical Summary ---
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
--- OUTSIDE RECORDS SUMMARY | 2024-10-01 15:35 | XMS_ITS | Referral Summary ---
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
--- OUTSIDE RECORDS SUMMARY | 2024-10-01 15:35 | XMS_ITS | Clinical Summary ---
Author Organization [facility] Address [facility] [place] [address] Care Team Providers Care Retail Business Manager Name Role Phone Josette Salas MD Primary Care Provider [phone] Allergies Active Allergy Reactions Criticality Noted Date [...] patient's age to complete this topic Insurance [facility] C/O PROVIDER SERVICES MALLORY RUIZ [id number] Care Teams Retail Business Manager Relationship Specialty Start Date End Date Josette Salas MD [address] [place] [address] ALEXANDRA WANG [id number] PCP - General FAMILY PRACTICE 12/12/19
== END 2024-10-01 15:44 | disposition left against medical advice (07) ==
DX: R11.2 Nausea with vomiting, unspecified (principal); T50.905A Adverse effect of unspecified drugs, medicaments and biological substances, initial encounter; E86.0 Dehydration; F41.9 Anxiety disorder, unspecified; K21.9 Gastro-esophageal reflux disease without esophagitis
CPT/HCPCS: 70450; 99284

== ENCOUNTER 2025-01-11 10:05 | Emergency (ER) | payer BC, SELFPAY ==
--- OUTSIDE RECORDS SUMMARY | 2025-01-11 10:08 | XMS_ITS | Data Portability ---
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 Plan of Treatment Reminders Order Date Submit Date Provider Last Modified By Organization Details Last Modified Time Details Appointments None recorded. Lab STI panel 2023 024 [facility], [address] [place], [address], 4 13:50:28 unlisted lab - STD screening ([facility]) 2023 024 [facility], [address] [place], [address], 4 11:46:27 Referral None recorded. Procedures None recorded. Surgeries None recorded. Imaging None recorded. Medication Orders meloxicam 15 mg tablet 2023 024 [id number], [address], [place], [id number], 4 19:14:04 Patient TargetsNo targets recorded. Patient InstructionsNo instructions recorded. Reason for Referral None Reported. Results Created Date Observation Date Name Description Value Unit Range Abnormal Flag Note LastModifiedBy Organization Detail LastModifiedTime 12/09/19 24 12/09/2023 STD [facility]EE [facility] ([facility] ) STD screening ([facility]) No specim en receiv ed to ED[facility] as of 2023 Not Available [facility] [address] [place], [address], 12/09/2023 11:46:26 11/28/19 24 11/30/2023 STI PANEL trichomonas vaginalis TRICH POS negati ve abnormal Not Available [facility] [address] [place], [address], 11/30/2023 13:50:28 11/28/19 24 11/30/2023 STI PANEL chlamydia trachomatis CT neg negati ve normal This repor t is inten ded for us in clini alex monit oring and manag ement of patie nts. It is not inten ded for use in medic al-le gal appli catio n. Not Available [facility] [address] [place], [address], 11/30/2023 13:50:28 11/28/19 24 11/30/2023 STI PANEL neisseria gonorrhoeae GC neg negati ve normal This repor t is inten ded for us in clini alex monit oring and manag ement of patie nts. It is not inten ded for use in medic al-le gal appli catio n. Not Available [facility] [address] [place], [address], 11/30/2023 13:50:28 Result Notes None recorded. Problems [...] : NO ProblemS tatus: Resolve Not Available [facility] 2 21:10:35 Pelvic and perineal pain 662383892 Active 2020 Pelvic and perineal pain; Progress : Stable Added By: Enedelia Royal Add to Current Problems : YES ProblemS tatus: Current Not Available [facility] 2 21:10:36 Screenin g for malignan t neoplasm of cervix Completed 201902/24/2021 Encounte r for screenin g for malignan t neoplasm of cervix; Progress : Stable Added By: Tiffanie Prajapati Add to Current Problems : NO ProblemS tatus: Resolve Not Available [facility] 2 21:10:38 Problem Notes None recorded. Procedures Surgical History Date Name Laterality Status Provider Name and Address Organization Details Recorded Time 1 Date of Last Pap Smear completed [facility] 11/28/2023 17:25:26 [facility]oscopy completed [facility] 11/28/2023 17:25:27 Imaging Results None recorded. Procedure Notes None recorded. Medical Equipment None Reported. Allergies Allergen ID Allergen Name Allergen Category Reaction Reaction Severity Criticality Documentation Date Start Date Code Code System Note Provider Name and Address Organization Details Recorded Time 105916 aspirin medicatio n Not available Not available Not available 06/18/20212019 1191 RxNorm Sever ity: Moder ate; Not Available [facility] 1 01:17:03 Medications Name Sig Start Date Stop Date Status Note LastModified by Organization Details LastModified Time Mirena 21 mcg/24 hr (up to 8 years) 52 mg intrauter ine device 02/08 completed Mirena 20 mcg/24 hours (5 yrs) 52 mg Intraute rine Intraute rine Device RxNorm: 166023 Allow Substitu tion: False Refill Denied: No Refill DateOccu rred: 05/12/20 20 Edited by: Sonya Villaseñor ) on 02/09/20 Stopped by: clementine shanks(Eduar [...] 4 mg oral Tablet,d isintegr ating RxNorm: 167827 Allow Substitu tion: False Refill Denied: No Refill DateOccu rred: 02/09/20 Edited by: clementine shanks(Thornt on, Sonya ) on 02/09/20 21 Stopped by: clementine shanks(Thornt on, Sonya ) on Not Available Not Available Not Available ParaGard T 380A 380 square mm intrauter ine device active ParaGard T 380A 380 square mm Intraute rine Intraute rine Device RxNorm: 6815060 Allow Substitu tion: False Refill Denied: No Refill DateOccu rred: 02/09/20 21 Edited by: clementine shanks(Thornt on, Sonya ) [...] potassium chloride active potassiu m chloride RxNorm: 5362244 Refill Denied: No Refill DateOccu rred: 02/09/20 21 Edited by: clementine shanks(Thornt on, Sonya ) on 02/09/20 21 Stopped by: clementine shanks(Thornt on, Sonya ) on Not Available Not Available Not Available Centrum 11/27 completed Centrum Allow Substitu tion: False Refill Denied: No Refill DateOccu rred: 05/12/20 Edited by: Tiffanie Wick ) on 05/12/20 Stopped by: tonia( Tiffanie Prajapati ) on Not Available Not Available Not Available Vitals Date Recorded Body weight Body mass index (BMI) Body height Systolic blood pressure Diastolic blood pressure Provider Name and Address Organization Details Last Updated DateTime 11/28/2023 340692.7 1 g 31.5 kg/m2 193.04 cm 120 mm[Hg] 78 mm[Hg] Alina Cobianjhoan [facility] 17:40:18 Social History Question Answer Notes LastModified by Organizat ion Details LastModified Time Tobacco Smoking Status Former Smoker Alina Bolton pedro, [facility] 11/28/2023 17:25:27 How Many Years Have You Consumed Alcohol? 20 Information not available 11/28/2023 Are You Blind Or Do You Have Difficulty Seeing? No Information not available 11/28/2023 Are You Deaf [...] Smoking Tobacco? 16 Information not available 11/28/2023 How Many Years Have You Smoked Tobacco? 12 Information not available 11/28/2023 Sex: Unknown Functional Status Question Answer Note LastModified by Organizat ion Details LastModified Time Do you use any illicit or recreational drugs? No Information not available 11/28/2023 Do you or have you ever used any other forms of tobacco or nicotine? No Information not available 11/28/2023 What is your level of alcohol consumption? Occasional Information not available 11/28/2023 Are you currently employed? Yes Information not available 11/28/2023 What is your exercise level? Occasional Information not available 11/28/2023 Mental Status None recorded. Family History Relationship Description Onset Age of this Age Resolved Age Notes LastModified by Organization Details LastModified Time Brother Depressive disorder [email or web address] Not available 2023 17:25:26 Sister Depressive disorder [email or web address] Not available 2023 17:25:26 Father Depressive disorder [email or web address] Not available 2023 17:25:26 Medical History Condition Response ADD/ADHD Y Arthritis Y Polycystic Ovarian Syndrome Y Panic Attacks Y Headaches/migraines Y GERD (reflux) Y Seasonal allergies Y Gynecological History Statement/Question Response Flow Moderate [...] SNOMED-CT Code Diagnosis ICD10 Code Diagnosis Note [id number] Roselia Bryant MD [facility] [address] [place] [address] 11/28/2023 17:03:54 11/28/2023 18:11:55 Dysmenorrhea 793238701 N94.5 discussed use of NSAIDS to reduce prostaglan dins, allergic to asa but can take other NSAIDS. Venereal d isease screening 454599888 Z11.3 Health Concerns Section Related Observation LastModified by Organization Detai ls LastModified Time None Recorded Concern Status LastModified by Organization Details LastModified Time None Recorded Advance Directives Directive None Recorded Payers Insurance Date Sequence Insurance Name Policy Number Policy Manriquez Covered Member ID Manriquez Member ID Guarantor Name 11/28/2023 1 [facility] [place] [facility] Kayy Dorado [id number] Kayy Dorado 01/27/2024 1 [facility] (MEDICAID REPLACEMENT - HMO) [id number] Kayy Dorado [id number] Kayy Dorado Notes Date Note Type [...] to have STI testing Roselia Bryant MD [facility] [place], [address], [facility] 11/28/2023 18:11:40 OBGyn Episode Ob Episode Information Episode Created Date Number of Fetuses Patient Bloodtype Patient rh Status Prepregnancy Weight lbs Domestic Partner Domestic Partner Phone Father Name Material Handling Technician Status 11/28/19 24 1 CLOSED Fetus Data [...] Domestic Partner Domestic Partner Phone Father Name Material Handling Technician Status 11/28/19 24 1 CLOSED Fetus Data First Name Last Name Admitted to NICU Weight (g) Sex Living Outcome Pediatric Complications Fetus ID Race Codes Race Delivery Type 4082.32 8 M Full Term [id number] Gama Calculation Initial Gama Date Initial Exam [...] Domestic Partner Domestic Partner Phone Father Name Material Handling Technician Status 11/28/19 24 1 CLOSED Fetus Data [...]
--- OUTSIDE RECORDS SUMMARY | 2025-01-11 10:09 | XMS_ITS | Clinical Summary ---
Author Organization [facility] Address [facility] [place] [address] Care Team Providers Care Hand Dry Cleaner Name Role Phone Josette Salas MD Primary Care Provider [phone] Allergies Active Allergy Reactions Criticality Noted Date [...] 85 06/18/2021 8:23 AM CDT Temperature 36.2 C (97.2 F) 06/18/2021 8:23 AM CDT Respiratory Rate 20 06/18/2021 8:23 AM CDT [...] 2017 COVID-19 Vaccine (2023-2 5 season) 2024 HPV Vaccines Aged Out No longer eligi ble based on patient's age to complete this topic Meningococcal B Vaccine Aged Out No l onger eligible based on patient's age to complete this topic Meningococcal Vaccine Aged Out No opal radha eligible based on patient's age to complete this topic Pneumococcal Vaccine: Pediat rics (0 to 5 Years) and At-Risk Patients (6 to 49 Years) Aged Out No longer eligible b ased on patient's age to complete this topic RSV Immunizations Under 20 Months Aged Out No longer eligible based on patient's age to complete this topic [place] [address] [place] [address] C/O PROVIDER SERVICES [employer] RUIZ [id number] Care Teams Hand Dry Cleaner Relationship Specialty Start Date End Date Josette Salas MD [address] [place] [address] [place] [address] PCP - General FAMILY PRACTICE 12/12/19
--- OUTSIDE RECORDS SUMMARY | 2025-01-11 10:09 | XMS_ITS | Data Portability ---
Author Organization [place] - [employer], Main Office Address [address] [place] [address] Assessment Encounter Date Assessment Date Assessment LastModified [...] better. She is able to work at [employer] without any difficulties on the left side. [...] wide toe box. She may get that ddzt-lok-iopsemc . She may continue to be activities as tolerated. We will have her follow-up on a as needed basis. She is in agreement with plan. [email or web address] Not available 07/12/2023 10:38:11 Plan of Treatment Reminders Order Date Submit Date Provider Last Modified By Organization Details Last Modified Time Details Appointments None recorded. Lab unlisted lab - urine drug abuse panel 10 2023 024 [email or web address] [facility] (Lab), [address] [place], [address], 4 08:11:21 HbA1c (hemoglobin A1c), blood 2023 024 [email or web address] [...] 2023 024 [email or web address] Not available 4 17:13:03 Referral psychiatris t referral - Please call patient to schedule an appointment . Thank you. 2023 024 [email or web address] [facility], [address] [address], [place], [address], 4 16:04:59 Procedures None recorded. Surgeries None recorded. Imaging XR, foot 2022 023 [email or web address] [facility] [place], [address], [place], [address], 3 11:35:05 XR, foot, 3 or more view 2022 023 [email or web address] [facility] [place], [address], [place], [address], 3 11:05:48 Medication Orders trazodone 50 mg tablet 2023 024 [place] [id number], [address], [place], [id number], 4 09:26:54 alprazolam 1 mg tablet 2022 023 [place] [id number], [address], [place], [id number], 14:19:19 Patient TargetsNo targets recorded. Patient InstructionsNo instructions recorded. Reason for Referral Psychiatrist Referral for An xiety anxiety, currently on benzo Please call patient to schedule an appointment. Thank you. Referring Physician: Elton Sifuentes, [facility], Encounter Date: 02/15/2024 Results Created Date Observation Date Name Description Value Unit Range Abnormal Flag Note LastModifiedBy Organization Detail LastModifiedTime 11/03/19 24 11/03/2023 CBC/C OMPLE TE BLD COUNT W/DIF F white blood cells 6.7 x10'3 /uL 4.2-10 .8 Not Available [facility] (Lab) [address] [place], [address], 11/03/2023 21:28:13 11/03/19 24 11/03/2023 CBC/C OMPLE TE BLD COUNT W/DIF F red blood cells 4.56 x10'6 /uL 3.80-5 .20 Not Available [facility] (Lab) [address] [place], [address], 11/03/2023 21:28:13 11/03/19 24 11/03/2023 CBC/C OMPLE TE BLD COUNT W/DIF F hemoglobin 13.2 g/dL 12.0-1 5.6 Not Available [facility] (Lab) [address] [place], [address], 11/03/2023 21:28:13 11/03/19 24 11/03/2023 CBC/C OMPLE TE BLD COUNT W/DIF F hematocrit 40.0 % 35.7-4 5.7 Not Available [facility] (Lab) [address] [place], [address], 11/03/2023 21:28:13 11/03/19 24 11/03/2023 CBC/C OMPLE TE BLD COUNT W/DIF F mean red cell volume 87.7 fL 82.0-9 9.0 Not Available [facility] (Lab) [address] [place], [address], 11/03/2023 21:28:13 11/03/19 24 11/03/2023 CBC/C OMPLE TE BLD COUNT W/DIF F mean red cell hemoglobin 28.9 pg 27.0-3 3.0 Not Available [facility] (Lab) [address] [place], [address], 11/03/2023 21:28:13 11/03/19 24 11/03/2023 CBC/C OMPLE TE BLD COUNT W/DIF F mean RBC HGB concentratio n 33.0 g/dL 31.0-3 6.0 Not Available [facility] (Lab) [address] [place], [address], 11/03/2023 21:28:13 11/03/19 24 11/03/2023 CBC/C OMPLE TE BLD COUNT W/DIF F red cell distribution width 13.4 % 11.8-1 5.5 Not Available [facility] (Lab) [address] [place], [address], 11/03/2023 21:28:13 11/03/19 24 11/03/2023 CBC/C OMPLE TE BLD COUNT W/DIF F platelets 230 x10'3 /uL 150-40 0 Not Available [facility] (Lab) [address] [place], [address], 11/03/2023 21:28:13 11/03/19 24 11/03/2023 CBC/C OMPLE TE BLD COUNT W/DIF F mean platelet volume 11.8 fL 9.0-12 .4 Not Available [facility] (Lab) [address] [place], [address], 11/03/2023 21:28:13 11/03/19 24 11/03/2023 CBC/C OMPLE TE BLD COUNT W/DIF F neutrophils 60.6 % 39.0-7 2.0 Not Available [facility] (Lab) [address] [place], [address], 11/03/2023 21:28:13 11/03/19 24 11/03/2023 CBC/C OMPLE TE BLD COUNT W/DIF F lymphocytes 28.0 % 16.0-4 7.0 Not Available [facility] (Lab) [address] [place], [address], 11/03/2023 21:28:13 11/03/19 24 11/03/2023 CBC/C OMPLE TE BLD COUNT W/DIF F monocytes 7.8 % 5.0-12 .0 Not Available [facility] (Lab) [address] [place], [address], 11/03/2023 21:28:13 11/03/19 24 11/03/2023 CBC/C OMPLE TE BLD COUNT W/DIF F eosinophils 2.8 % 1.0-7. 0 Not Available [facility] (Lab) [address] [place], [address], 11/03/2023 21:28:13 11/03/19 24 11/03/2023 CBC/C OMPLE TE BLD COUNT W/DIF F basophils 0.7 % 0.0-2. 0 Not Available [facility] (Lab) [address] [place], [address], 11/03/2023 21:28:13 11/03/19 24 11/03/2023 CBC/C OMPLE TE BLD COUNT W/DIF F immature granulocytes 0.1 % 0.00-0 .50 Not Available [facility] (Lab) [address] [place], [address], 11/03/2023 21:28:13 11/03/19 24 11/03/2023 CBC/C OMPLE TE BLD COUNT W/DIF F neutrophils, absolute count 4.03 x10'3 /uL 1.5-8. 0 Not Available [facility] (Lab) [address] [place], [address], 11/03/2023 21:28:13 11/03/19 24 11/03/2023 CBC/C OMPLE TE BLD COUNT W/DIF F lymphocytes, absolute count 1.87 x10'3 /uL 1.07-3 .43 Not Available [facility] (Lab) [address] [place], [address], 11/03/2023 21:28:13 11/03/19 24 11/03/2023 CBC/C OMPLE TE BLD COUNT W/DIF F monocytes, absolute count 0.52 x10'3 /uL 0.29-0 .99 Not Available [facility] (Lab) [address] [place], [address], 11/03/2023 21:28:13 11/03/19 24 11/03/2023 CBC/C OMPLE TE BLD COUNT W/DIF F eosinophils, absolute count 0.19 x10'3 /uL 0.02-0 .53 Not Available [facility] (Lab) [address] [place], [address], 11/03/2023 21:28:13 11/03/19 24 11/03/2023 CBC/C OMPLE TE BLD COUNT W/DIF F basophils, absolute count 0.05 x10'3 /uL 0.01-0 .08 Not Available [facility] (Lab) [address] [place], [address], 11/03/2023 21:28:13 11/03/19 24 11/03/2023 CBC/C OMPLE TE BLD COUNT W/DIF F immature granulocytes ,absolute 0.01 x10'3 /uL 0.00-0 .05 Not Available [facility] (Lab) [address] [place], [address], 11/03/2023 21:28:13 11/03/19 24 11/03/2023 CBC/C OMPLE TE BLD COUNT W/DIF F nucleated red blood cells 0.0 % -0 Not Available [facility] (Lab) [address] [place], [address], 11/03/2023 21:28:13 11/03/19 24 11/03/2023 CBC/C OMPLE TE BLD COUNT W/DIF F NRBC# 0.00 x10'3 /uL Not Available [facility] (Lab) [address] [place], [address], 11/03/2023 21:28:13 11/03/19 24 11/03/2023 MAGNE SIUM magnesium 1.9 mg/dL 1.6-2. 3 Not Available [facility] (Lab) [address] [place], [address], 11/03/2023 21:53:18 11/03/19 24 11/03/2023 BASIC METAB OLIC PANEL sodium 141 mmol/ L 137-14 5 Not Available [facility] (Lab) [address] [place], [address], 11/03/2023 21:53:23 11/03/19 24 11/03/2023 BASIC METAB OLIC PANEL potassium 3.7 mmol/ L 3.5-5. 1 Not Available [facility] (Lab) [address] [place], [address], 11/03/2023 21:53:23 11/03/19 24 11/03/2023 BASIC METAB OLIC PANEL chloride 108 mmol/ L 98-107 high Not Available [facility] (Lab) [address] [place], [address], 11/03/2023 21:53:23 11/03/19 24 11/03/2023 BASIC METAB OLIC PANEL carbon dioxide 26 mmol/ L 22-30 Not Available [facility] (Lab) [address] [place], [address], 11/03/2023 21:53:23 11/03/19 24 11/03/2023 BASIC METAB OLIC PANEL anion gap 10.7 mmol/ L 14-22 low Not Available [facility] (Lab) [address] [place], [address], 11/03/2023 21:53:23 11/03/19 24 11/03/2023 BASIC METAB OLIC PANEL glucose 96 mg/dL 70-99 Not Available [facility] (Lab) [address] [place], [address], 11/03/2023 21:53:23 11/03/19 24 11/03/2023 BASIC METAB OLIC PANEL BUN 16 mg/dL 8-19 Not Available [facility] (Lab) [address] [place], [address], 11/03/2023 21:53:23 11/03/19 24 11/03/2023 BASIC METAB OLIC PANEL creatinine 0.66 mg/dL 0.66-1 .25 Not Available [facility] (Lab) [address] [place], [address], 11/03/2023 21:53:23 11/03/19 24 11/03/2023 BASIC METAB OLIC PANEL GFR >60 Refer ence Range : Verbena ge GFR Healt hy Adult : >60 [...] s/kdo qi/gf r_cal culat or Not Available [facility] (Lab) [address] [place], [address], 11/03/2023 21:53:23 11/03/19 24 11/03/2023 BASIC METAB OLIC PANEL calcium 9.9 mg/dL 8.4-10 .2 Not Available [facility] (Lab) [address] [place], [address], 11/03/2023 21:53:23 11/03/19 24 11/03/2023 IRON/ TIBC PANEL total iron binding capacity 348 mcg/d L 265-47 5 Not Available [facility] (Lab) [address] [place], [address], 11/03/2023 22:00:38 11/03/19 24 11/03/2023 IRON/ TIBC PANEL % transferrin saturation 26 % 20-55 Not Available [facility] (Lab) [address] [place], [address], 11/03/2023 22:00:38 11/03/19 24 11/03/2023 IRON/ TIBC PANEL unsaturated iron bind capacity 257 mcg/d L 126-38 2 Not Available [facility] (Lab) [address] [place], [address], 11/03/2023 22:00:38 11/03/19 24 11/03/2023 IRON/ TIBC PANEL iron 91 mcg/d L 42-175 Not Available [facility] (Lab) [address] [place], [address], 11/03/2023 22:00:38 11/03/19 24 11/03/2023 HEMOG LOBIN A1C HA1C 5.1 % 4.0-6. 0 Diabe rosie Scree rosy Crite romina: <5.7% Consi stent with absen ce of diabe rosie 5.7-6 .4% Consi stent with incre ased risk for diabe rosie (pred iabet es) >OR=6 .5% Consi stent with diabe rosie REFER ENCE: Diabe rosie Care 2016, 39(Waggoner ppl.1 ):s13 -s22 Not Available [facility] (Lab) [address] [place], [address], 11/03/2023 22:19:05 11/03/19 24 11/03/2023 VITAM IN D 25-HY DROXY vd25oh 37.4 NG/mL 30-100 Vitam in D Statu s: Defic ient: <20 ng/mL Insuf ficie nt: 20-29 ng/mL Suffi cient : 30-10 0 ng/mL Not Available [facility] (Lab) [address] [place], [address], 11/03/2023 22:19:25 11/03/19 24 11/03/2023 VITAM IN B12 (KALE DARCIE ) vb12 531 pg/mL 239-93 1 Not Available [facility] (Lab) [address] [place], [address], 11/03/2023 23:16:16 11/03/19 24 11/03/2023 FOLAT E, SERUM /PLAS MA folate 5.40 NG/mL 2.76-2 0.0 Not Available [facility] (Lab) [address] [place], [address], 11/03/2023 23:16:17 11/03/19 24 11/03/2023 TSH thyroid-stim ulating hormone 1.090 uIU/m L 0.465- 4.680 Not Available [facility] (Lab) [address] [place], [address], 11/03/2023 23:17:07 11/03/19 24 11/03/2023 MONICA TIN ferritin 40 NG/mL 6.24-1 37 Not Available [facility] (Lab) [address] [place], [address], 11/03/2023 23:17:12 04/18/20 23 XR, foot, 3 or more view No observ ation record ed. [email or web address] [facility] [place] [address], [place], [address], 04/18/2023 09:12:11 05/17/20 23 XR, foot, 3 or more view No observ ation record ed. [email or web address] [facility] [place] [address], [place], [address], 05/17/2023 11:25:11 07/12/20 23 XR, foot No observ ation record ed. [email or web address] [facility] [place] [address] [facility] [address], [place], [address], 07/12/2023 09:08:47 10/04/19 25 10/04/2024 imagi ng/di agnos tic resul t No observ ation [facility]. [facility] [address] [place], [address], 10/04/2024 17:08:25 Result Notes None recorded. Problems Name Problem SNOMED Code Status Onset Date Resolution Date Notes Provider Name and Address Organization Details Recorded Time Abnormal weight gain 247192873 Active Not Available [facility] 02:50:27 Backache 528332031 Active Not Available [facility] 3 02:50:27 Headache 02109873 Active Not Available [facility] 3 02:50:27 Knee pain Active Not Available [facility] 3 02:50:27 Vitamin D deficiency 25445874 Active 2017 Not Available [facility] 3 02:50:27 Obesity 318568547 Active Not Available [facility] 3 02:50:28 Neck pain 78163524 Active 2022 Josette Salas MD [address], [place], [address] , [employer] [facility] [employer] [facility] 3 10:06:41 Cyclical vomiting syndrome 22757251 Active 2022 Josette Salas MD [address], [place], [address] , [facility] [employer] [facility] [employer] [facility] 3 17:32:39 Anxiety 68519490 Active 2022 Josette Salas MD [address], [place], [address] , [facility] [facility] [employer] [facility] [employer] [facility] 3 17:32:58 Dental abscess 006441496 Active 2022 Josette Salas MD [address], [place], [address] , [facility] [facility] [employer] [facility] 3 10:55:41 Injury of left foot 2279310894559 9108 Active 2022 MALLORY Johnson [address], [place], [address] , [facility] [facility] [employer] [facility] [employer] [facility] 3 11:09:20 Pain in left foot 0317884873878 07 Active 2022 PHUONG Watt, [place] [facility] 3 11:39:08 Postconcus merly syndrome 41352160 Active 2022 Josette Salas MD [address], [place], [address] , [employer] 3 07:47:41 Pain in right foot 6513612523319 07 Active 2022 Desiree Li CNA null, [facility] [employer] [facility] 3 09:08:39 Spasm 34872712 Active 2023 Josette Salas MD [address], [place], [address] , [facility] [employer] [facility] 4 16:44:22 Hyperglyce [facility] 75066107 Active 2023 Josette Salas MD [address], [place], [address] , [facility] [employer] 4 16:45:00 Insomnia 247664103 Active 2023 MELISSA Jennings [address] [facility] [address], [place], [address] , [facility] [employer] 4 09:24:55 Problem Notes None recorded. Procedures Surgical History None recorded. Imaging Results Imaging Date Name Status LastModified by [facility] Details LastModified Time 04/18/2023 XR, foot, 3 or more view completed [email or web address] [facility] [place] [address] [facility] [address], [place], [address], 04/18/2023 09:12:11 05/17/2023 XR, foot, 3 or more view completed [email or web address] [facility] [place] [address] [facility] [address], [place], [address], 05/17/2023 11:25:11 07/12/2023 XR, foot completed [email or web address] [facility] [place] [address] [facility] [address], [place], [address], 07/12/2023 09:08:47 10/04/2024 imaging/diag nostic result active [facility] [address] [facility], [place], [address], 10/04/2024 17:08:25 Procedure Notes None recorded. Medical Equipment None Reported. Allergies Allergen ID Allergen Name Allergen Category Reaction Reaction Severity Criticality Documentation Date Start Date Code Code System Note Provider Name and Address Organization Details Recorded Time 4734 aspirin medicatio n nausea moderate Not available 10/26/2022 1191 RxNorm cold and shaky Desiree Guillermo, CUSTOMER RELATIONSHIP SPECIALIST null, [place] [facility] [employer] [facility] 3 11:35:10 Medications Name Sig Start Date [...] administe red by the provider 11/04 completed [facility]: 0003- 0494- 20 Not Available Not Available [...] propionate 50 mcg/actuati on nasal spray,suspe nsion Cameron 1 spray every day by intranasa l route for 30 days. 01/13 completed Not Available Not Available Not Available sertraline 50 mg tablet TK 1 T PO D 0 [id number]|2025-01-11 10:09:00|2025-01-11 10:08:00|XMS_ITS|BKG RAJ|External Medical Summaries|[id number]|" CONTINUITY OF CARE DOCUMENT Created on: January 11, 2025 Kayy Dorado : 1985 Sex: Female Author Name [email or web address], tjser Address Unknown Organization [facility] Address [address] [place] [address] Phone [phone] Care Team Providers Care Hitcher Name Role Phone Mario Freeman MD Unavailable ELISABETH NEWMAN MD Unavailable ELISABETH NEWMAN MD Unavailable [phone] PROBLEMS Condition Status Date Provider Notes PALPITATIONS-8/12 HOLTER SR HR 54-119 active ? Mario Freeman MD SHORTNESS OF BREATH-8/12 ECHO EF 60 active ? Mario Freeman MD ENCOUNTERS Date Type Provider Location Encounter Diagnosis - In-person encounter Office Visit Mario Freeman MD [facility] PALPITATIONS-8/12 HOLTER SR HR 54-119SHORTNESS OF BREATH-8/12 ECHO EF 60 - In-person encounter Office Visit Mario Freeman MD [facility] PALPITATIONS-04/08 HOLTER SR HR 54-119SHORTNESS OF BREATH-04/08 ECHO EF 60 VITAL SIGNS Date Observation Value Provider Body Mass Index (Ratio) 29.47 kg/m2 Blade sánchez [place] blood pressure, diastolic 70 mm[Hg] Aleyda seph [place] blood pressure, systolic 106 mm[Hg] Hubert eph [place] pulse rate 82 /min [facility] oxygen saturation, oximetry 98 % [facility] respiratory rate E&M 16 /min [facility] weight E&M 241.2 [lb_av] [facility] height E&M 76 [in_i] [facility] blood pressure, diastolic 70 mm[Hg] Alexis mckeei Rocio blood pressure, systolic 102 mm[Hg] Yina Chan pulse rate 70 /min Eliza Hair lder oxygen saturation, oximetry 99 % Eliza Chan respiratory rate E&M 18 /min Eliza rajan weight E&M 238.2 [lb_av] Eliza Manrique elder ALLERGIES Allergy Name Onset Date Reaction Criticality Status ASPIRIN flu like symptoms High Criticality a ctive RESULTS Date Observation Value Provider Reference Range Interpretation Location alanine aminotransferase (SGPT), serum 13 1/L [facility] 6-40 Normal aspartate aminotransferase (SGOT), serum 14 1/L [facility] 10-30 Normal alkaline phosphatase, serum 68 1/L [facility] 33-115 Normal bilirubin, serum, total 0.5 mg/dL [facility] 0.2-1.2 Normal albumin/globulin ratio, serum 2.5 (calc) [facility] 1.0-2.1 High globulins, serum, total 1.9 G/DL (CALC) [facility] 2.2-3.9 Low albumin, serum 4.7 g/dL [facility] 3.6-5.1 Normal protein, total, serum 6.6 g/dL [facility] 6.2-8.3 Normal calcium, serum 9.5 mg/dL [facility] 8.6-10.2 Normal carbon dioxide, venous blood 23 mmol/L [facility] 21-33 Normal chloride, serum 104 mmol/L [facility] 98-110 Normal potassium, serum 4.2 mmol/L [facility] 3.5-5.3 Normal sodium, serum 137 mmol/L [facility] 135-146 Normal urea nitrogen/creatinine ratio, serum NOT APPLICABLE (calc) [facility] 6- Estimated Glomerular Filtration Rate (calc) 127 mL/min/{1.73_ m2} [facility] > OR = 60 Normal creatinine, serum 0.76 mg/dL [facility] 0.50-1.10 Normal urea nitrogen, blood 15 mg/dL [facility] 7-25 Normal blood glucose, random 90 mg/dL [facility] 65-99 Normal magnesium, serum 1.9 mg/dL [facility] 1.5-2.5 Normal HISTORY OF MEDICATION USE Medication Status Instructions Dates Provider Indications Com ments VITAMINS TABLET active 1 tablet by mouth daily Robert Marcus TYLENOL TABLET active 1 tablet by mout h as needed Robert Marcus MOBIC 7.5 MG ORAL TABLET completed take one pill a day - Robert Marcus VICODIN 5-500 MG TABS completed prn pain - Robert Marcus SOCIAL HISTORY Date Observation Value Provider social history reviewed E&M reviewed Lucas Victoria RN smoking history, tot al pack/day 0 Robert Marcus exercise type walking Robert Marcus alcohol use, type mixed drinks-n one right now due to Robert Marcus drug use no Robert Marcus passive cigarette sm joyce exposure yes Robert Marcus smoking/tobacco cess ation, patient education and counseling yes Robert Marcus cigarette use yes Robert Marcus smoking status current some day smoker Aleyda Marcus social history E&M L tod with family/friends E thnicity: Mario Freeman MD drug use none Mario Freeman MD smoking/tobacco cess ation, patient education and counseling yes Mario Freeman MD cigarette use 6 Mario Odom social history reviewed E&M reviewed Mario Freeman MD physical exercise, f requency, days per week yes [facility] caffeine use, averag e drinks per day yes [facility] alcohol use, average drinks per day social basis only [facility] number of years as a smoker less than 10 [facility] MENTAL STATUS Date Observation Value Provider assessment of judgme nt and insight E&M Alert and oriented to time, place and person. Mood and affect are normal. Lucas Victoria RN assessment of judgme nt and insight E&M Alert and oriented to time, place and person. Mood and affect are normal. Mario Freeman MD INSURANCE PROVIDERS Payer name Policy type / Coverage type Mobile red democrat ID [facility] [id number] TREATMENT PLAN Date Name Performer Follow-up: B P today: 106/70 Prior BP: 102/70 (03/16/2012) B UN: 15 (03/17/2012) Creat: 0.76 (03/17/2012) Glucose: 90 (03/17/2012) N a+: 137 (03/17/2012) K+: 4.2 (03/17/2012) Cl: 104 (03/17/2012) Calcium: 9.5 (03/17/2012) Mg++: 1.9 (03/17/2012) Mario Freeman MD Follow-up:not sure w hat the reason is B P today: 106/70 Prior BP: 102/70 (03/16/2012) B UN: 15 (03/17/2012) Creat: 0.76 (03/17/2012) Glucose: 90 (03/17/2012) N a+: 137 (03/17/2012) K+: 4.2 (03/17/2012) Cl: 104 (03/17/2012) SGOT (AST): 14 (03/17/2012) SGPT (ALT): 13 (03/17/2012) Mario Freeman MD follow up: O rders: H olter Monitor 24 Hr (CPT-70007) C omplete Echo (CPT-00716) C OMPREHENSIVE METABOLIC PANEL W/EGFR (27797) M AGNESIUM (622) Mario Freeman MD Date Name MAGNESIUM COMPREHENSIVE METABO LIC PANEL W/EGFR Complete Echo Holter Monitor 24 Hr "
--- OUTSIDE RECORDS SUMMARY | 2025-01-11 10:09 | XMS_ITS | Referral Summary ---
Author Organization [facility] Address [address] [place] [address] Care Team Providers Care Skein Winder Name Role Phone Josette Salas MD Primary [...] e alcohol) Personal Safety Answer Date Recorded Have you ever been in or are you currently in a harmful physical or emotional relationship or is someone making you feel afraid or unsafe? Denies 10/01/2024 Comments No Sex and Gender Information Value Date Recorded Sex Assigned at Not on file Legal Sex Female 6:00 PM RECORDS ASSISTANT Gender Identity Not on file Sexual Orientation Not on file Last Filed Vital Signs Vital Sign Reading Time Taken Comments Blood Pressure 158/71 10/01/2024 8:20 PM RECORDS ASSISTANT Pulse 87 10/01/2024 8:20 PM RECORDS ASSISTANT Temperature 36.4 C (97.5 F) 10/01/2024 8:20 PM RECORDS ASSISTANT Respiratory Rate 20 10/01/2024 8:20 PM RECORDS ASSISTANT Oxygen Saturation 97% 10/01/2024 8:20 PM RECORDS ASSISTANT Inhaled Oxygen Concentration - - Weight 108.9 kg (240 lb) 10/01/2024 8:18 PM RECORDS ASSISTANT Height 193 cm (6' 4 ) 10/01/2024 8:18 PM RECORDS ASSISTANT Body Mass Index 29.21 10/01/2024 8:18 PM RECORDS ASSISTANT Plan of Treatment Not on file Insurance [facility] Care Teams Skein Winder Relationship Specialty Start Date End Date Josette Salas MD PCP - General 03/20/19
--- OUTSIDE RECORDS SUMMARY | 2025-01-11 10:09 | XMS_ITS | Clinical Summary ---
Author Organization [facility] Address [address] [place] [address] Care Team Providers Care Terrapin Fisher Name Role Phone Josette Salas MD Primary [...] on file Legal Sex Female 6:00 PM COMPLETION MANAGER Gender Identity Not on file Sexual Orientation Not on file Obstetrics History Last Filed Vital Signs Vital Sign Reading Time Taken Comments Blood Pressure 158/71 10/01/2024 8:20 PM COMPLETION MANAGER Pulse 87 10/01/2024 8:20 PM COMPLETION MANAGER Temperature 36.4 C (97.5 F) 10/01/2024 8:20 PM COMPLETION MANAGER Respiratory Rate 20 10/01/2024 8:20 PM COMPLETION MANAGER Oxygen Saturation 97% 10/01/2024 8:20 PM COMPLETION MANAGER Inhaled Oxygen Concentration - - Weight 108.9 kg (240 lb) 10/01/2024 8:18 PM COMPLETION MANAGER Height 193 cm (6' 4 ) 10/01/2024 8:18 PM COMPLETION MANAGER Body Mass Index 29.21 10/01/2024 8:18 PM COMPLETION MANAGER Plan of Treatment Not on file Insurance [facility] PLAN Care Teams Terrapin Fisher Relationship Specialty Start Date End Date Josette Salas MD PCP - General 03/20/19
--- OUTSIDE RECORDS SUMMARY | 2025-01-11 10:10 | XMS_ITS | CONTINUITY OF CARE DOCUMENT ---
Author Name jigna benito Address Unknown Organization [facility] Address [address] [facility] [address] [place] [address] Phone [phone] Care Team Providers Care Copy Cutter Name Role Phone Mario Freeman MD Unavailable PATY DAHL RASHMILIND Unavailable PATY DAHL RASHMIN Unavailable [phone] PROBLEMS Condition Status Date Provider Notes PALPITATIONS-8/12 HOLTER SR HR 54-119 active ? Mario Freeman MD SHORTNESS OF BREATH-8/12 ECHO EF 60 active ? Mario Freeman MD ENCOUNTERS Date Type Provider Location Encounter Diagnosis - In-person encounter Office Visit Mario Freeman MD [place] [facility] PALPITATIONS-8/12 HOLTER SR HR 54-119SHORTNESS OF BREATH-8/12 ECHO EF 60 - In-person encounter Office Visit Mario Freeman MD [facility] PALPITATIONS-8/12 HOLTER SR HR 54-119SHORTNESS OF BREATH-8/12 ECHO EF 60 VITAL SIGNS Date Observation Value Provider Body Mass Index (Ratio) 29.47 kg/m2 Blade ph [place] blood pressure, diastolic 70 mm[Hg] Aleyda seph [place] blood pressure, systolic 106 mm[Hg] Hubert eph [place] pulse rate 82 /min Robert [place] oxygen saturation, oximetry 98 % Robert [place] respiratory rate E&M 16 /min Robert [place] weight E&M 241.2 [lb_av] Robert Baigaco height E&M 76 [in_i] Robert Baigaco blood pressure, diastolic 70 mm[Hg] Alexis Manri[place]eche blood pressure, systolic 102 mm[Hg] Yina Manriquemadinajoyce pulse rate 70 /min Eliza Hair lder oxygen saturation, oximetry 99 % Eliza Manriquemadinajoyce respiratory rate E&M 18 /min Eliza resendezche weight E&M 238.2 [lb_av] Eliza Manrique elder [...] nitrogen/creatinine ratio, serum NOT APPLICABLE (calc) [employer] 6-22 Estimated Glomerular Filtration Rate (calc) 127 mL/min/{1.73_ [...] exercise, f requency, days per week yes [facility] caffeine use, averag e drinks per day yes [facility] alcohol use, average drinks per day social basis only [facility] number of years as a smoker less than 10 years [facility] smoking status Smoker [facility] MENTAL STATUS Date Observation Value Provider assessment of judgme nt and insight E&M Alert and oriented to time, place and person. Mood and affect are normal. Lucas Victoria RN assessment of judgme nt and insight E&M Alert and oriented to time, place and person. Mood and affect are normal. Mario Freeman MD INSURANCE PROVIDERS Payer name Policy type / Coverage type Manning red green party ID [facility] [id number] TREATMENT PLAN Date Name Performer Follow-up: B [...] O rders: H olter Monitor 24 Hr (CPT-25039) C omplete Echo (CPT-29194) C OMPREHENSIVE METABOLIC PANEL W/EGFR (28138) M AGNESIUM ([phone]) Mario Freeman MD Date Name MAGNESIUM COMPREHENSIVE METABO LIC PANEL W/EGFR Complete Echo Holter Monitor 24 Hr
[2025-01-11 10:12] VITALS: BP 143/91; PULSE 73; RESP 20; TEMP 36.5; O2SAT 99
--- NOTE | 2025-01-11 10:41 | ED_ITS ---
HPI - General Adult General Chief complaint: Dental/Oral Stated complaint: broken tooth Source: patient Mode of arrival: ambulatory Limitations: no limitations History of Present Illness HPI narrative: Patient presents for evaluation of right lower dental pain since last night. She states the pain is constant, throbbing, rated 8/10 in severity. She reports right-sided facial swelling. She denies any fever, chills, nausea, vomiting. She has tried ibuprofen for pain. She smokes marijuana but not cigarettes. Related Data Home Medications Medication Instructions Recorded Confirmed Last Taken Type alprazolam 1 mg tablet 1 mg PO TID 02/12/23 01/11/24 Unknown History amitriptyline 25 mg tablet 25 mg PO HS 02/12/23 01/11/24 Unknown History fluoxetine 20 mg capsule mg 01/11/25 Unknown History Allergies Allergy/AdvReac Type Severity Reaction Status Date / Time aspirin Allergy Severe Jittery/PAL Verified 02/12/23 11:03 E/IRMAKEY/N/ V Review of Systems Review of Systems: CONSTITUTIONAL: Denies fever, chills, or sweats. EYES: Denies visual changes, redness, or discharge. ENT: Reports right lower dental pain with right sided facial swelling. Denies rhinorrhea, congestion, sore throat, or otalgia. CARDIOVASCULAR: Denies chest pain, palpitations, or edema. RESPIRATORY: Denies cough or dyspnea. GASTROINTESTINAL: Denies abdominal pain, nausea, vomiting, or diarrhea. GENITOURINARY: Denies dysuria or hematuria. SKIN: Denies rash or itching. MUSCULOSKELETAL: Denies back pain, joint pain, or myalgia. NEUROLOGIC: Denies headache, numbness, dizziness, or weakness. PSYCHIATRIC: Denies anxiety or depression. [facility] Past Medical History Medical History Anxiety GERD (gastroesophageal reflux disease) Surgical History Surgical History History of ovarian cystectomy History of dilatation and curettage Family History Family History (Updated 01/11/25 @ 10:46 by JELENA Reese, CARLOS) Mother Family history non-contributory Social History Social History Smoking status: Former smoker Substance use type: marijuana Last use: Approximately 2 weeks Exam Narrative: GENERAL: Well-appearing, well-nourished, and in no acute distress. HEAD: Normocephalic, atraumatic. EYES: PERRLA and EOMI. ENT: Nares clear, no rhinorrhea or epistaxis. Mucous membranes moist. Tooth # 29 and tooth #31 are both fracture. There is tenderness in the gumline adjacent to tooth #29. There is no visible or palpable abscess. There is swelling along the right mandible. Oropharynx without tonsillar hypertrophy exudate or other lesions. Bilateral TMs pearly ferrara nonbulging NECK: Supple. No adenopathy or masses. No carotid bruits or JVD CHEST: Clear to auscultation. No respiratory distress. No wheezes rales or rhonchi HEART: Regular rate and rhythm. No murmur heard. Normal peripheral pulses. ABDOMEN: Soft, nontender, nondistended, normal active bowel sounds. EXTREMITIES: Normal range of motion. No edema. SKIN: Warm, dry, no rash. NEURO: No focal deficits. Alert and oriented x3. PSYCH: Normal mood and affect. Course Course Emergency Course: this is a 39-year-old female who presented for evaluation of right lower dental pain. She has two dental fractures noted. Discharge with penicillin and tramadol. Tramadol provided as paper prescription as it would not send electronically. She was advised not to smoke. She should follow up with her primary provider and dentist. Go to the ER for worsening symptoms. Pt in agreement with plan of care. Level of Care: Express Care Visit Vital Signs Vital signs: Vital Signs Temperature 36.5 C 01/11/25 10:12 Pulse Rate 73 01/11/25 10:12 Respiratory Rate 20 01/11/25 10:12 Blood Pressure 143/91 H 01/11/25 10:12 Pulse Oximetry 99 01/11/25 10:12 Oxygen Delivery Room Air 01/11/25 10:12 Temperature 36.5 C 01/11/25 10:12 Pulse Rate 73 01/11/25 10:12 Respiratory Rate 20 01/11/25 10:12 Blood Pressure 143/91 H 01/11/25 10:12 Pulse Oximetry 99 01/11/25 10:12 Oxygen Delivery Room Air 01/11/25 10:12 Medical Decision Making Vital Signs Vital Signs: Vital Signs Temperature 36.5 C 01/11/25 10:12 Pulse Rate 73 01/11/25 10:12 Respiratory Rate 20 01/11/25 10:12 Blood Pressure 143/91 H 01/11/25 10:12 Pulse Oximetry 99 01/11/25 10:12 Oxygen Delivery Room Air 01/11/25 10:12 Temperature 36.5 C 01/11/25 10:12 Pulse Rate 73 01/11/25 10:12 Respiratory Rate 20 01/11/25 10:12 Blood Pressure 143/91 H 01/11/25 10:12 Pulse Oximetry 99 01/11/25 10:12 Oxygen Delivery Room Air 01/11/25 10:12 Discharge Plan Discharge Clinical Impression: Fracture of tooth Patient Disposition: Home Condition: Stable Instructions: Antibiotic Form, Toothache (ED) Patient Language: Bengali Prescriptions: New penicillin V potassium 500 mg tablet 500 mg PO Q6H Qty: 40 0RF No Action fluoxetine 20 mg capsule amitriptyline 25 mg tablet 25 mg PO HS alprazolam 1 mg tablet 1 mg PO TID Follow-up/Referrals: Mikaela Obregon DO [Physician] - Time of Disposition: 10:31
== END 2025-01-11 10:40 | disposition home or self-care (01) ==
PROVIDERS: Emergency Provider Nurse Practitioner
DX: S02.5XXA Fracture of tooth (traumatic), initial encounter for closed fracture (principal); X58.XXXA Exposure to other specified factors, initial encounter; F12.90 Cannabis use, unspecified, uncomplicated; K21.9 Gastro-esophageal reflux disease without esophagitis; F41.9 Anxiety disorder, unspecified; Z87.891 Personal history of nicotine dependence
CPT/HCPCS: 99213; G0463

== ENCOUNTER 2025-04-30 08:14 | Emergency (ER) | payer BC, SELFPAY ==
[2025-04-30 08:20] VITALS: BP 152/97; PULSE 71; RESP 20; TEMP 36.8; O2SAT 100
--- OUTSIDE RECORDS SUMMARY | 2025-04-30 08:23 | XMS_ITS | Clinical Summary ---
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 Gender Identity Not on file Sexual Orientation Not on file Obstetrics History Last Filed Vital Signs Vital Sign Reading Time Taken Comments Blood Pressure 158/71 10/01/2024 8:20 PM WELDING MACHINE TENDER Pulse 87 10/01/2024 8:20 PM WELDING MACHINE TENDER Temperature 36.4 C (97.5 F) 10/01/2024 8:20 PM WELDING MACHINE TENDER Respiratory Rate 20 10/01/2024 8:20 PM WELDING MACHINE TENDER Oxygen Saturation 97% 10/01/2024 8:20 PM WELDING MACHINE TENDER Inhaled Oxygen Concentration - - Weight 108.9 kg (240 lb) 10/01/2024 8:18 PM WELDING MACHINE TENDER Height 193 cm (6' 4) 10/01/2024 8:18 PM WELDING MACHINE TENDER Body Mass Index 29.21 10/01/2024 8:18 PM WELDING MACHINE TENDER Plan of Treatment Not on file Insurance [facility] PLAN Care Teams Data Processing Equipment Repairer Relationship Specialty Start Date End Date Josette Salas MD PCP - General 03/20/19
--- NOTE | 2025-04-30 08:39 | ED.FEMALEGU ---
HPI - Female Genitourinary General Chief complaint: Urogenital-Female Stated complaint: Urinary Problem Time Seen by Provider: 04/30/25 08:40 Source: patient and RN notes reviewed Mode of arrival: ambulatory Limitations: no limitations History of Present Illness HPI Narrative: 39-year-old female presents concern for 3 day history of urine frequency, urgency, incontinence. She reports nausea without vomiting. She reports she has normal low back pain, so she has no change in back pain. She reports suprapubic pressure. She denies body aches, chills, fever, sweats. She does finished her menstrual. MD elicited complaint: UTI Related Data Home Medications ?Medication ?Instructions ?Recorded ?Confirmed ?Last Taken ?Type alprazolam 1 mg tablet 1 mg PO TID 02/12/23 01/11/24 Unknown History amitriptyline 25 mg tablet 25 mg PO HS 02/12/23 01/11/24 Unknown History fluoxetine 20 mg capsule mg 01/11/25 Unknown History Allergies Allergy/AdvReac Type Severity Reaction Status Date / Time aspirin Allergy Severe Jittery/PAL Verified 02/12/23 11:03 E/MODESTO/N/ V Review of Systems Review of Systems: CONSTITUTIONAL: Denies malaise, chills, sweats, or fever. CARDIOVASCULAR: Denies chest pain, palpitations, or edema. RESPIRATORY: Denies cough or dyspnea. GASTROINTESTINAL: Denies abdominal pain, nausea, vomiting, diarrhea GENITOURINARY: Reports frequency, urgency, suprapubic pressure, urine incontinent. Denies dysuria, flank pain or hematuria. SKIN: Denies rash or itching. MUSCULOSKELETAL: Denies back pain or myalgia. All systems reviewed & are unremarkable except as noted in HPI and below PMFSH Past Medical History Medical History Anxiety GERD (gastroesophageal reflux disease) Surgical History Surgical History History of ovarian cystectomy History of dilatation and curettage Family History Family History (Updated 01/11/25 @ 10:46 by JELENA Reese, CARLOS) Mother Family history non-contributory Social History Social History Smoking status: Former smoker Substance use type: marijuana Last use: Approximately 2 weeks Comments At time of signature, agree with nursing past medical, surgical, social and family history. There is no relevant family history pertinent to the presenting complaint Exam Narrative: GENERAL: Well-appearing, well-nourished, and in no acute distress. HEAD: Normocephalic. EYES: PERRLA, conjunctivae clear. NECK: Supple. No lymphadenopathy CHEST: Clear to auscultation. No respiratory distress. HEART: Regular rate and rhythm. ABDOMEN: Soft, suprapubic tenderness, otherwise nontender upon palpation, nondistended, no palpable or pulsatile masses, no guarding. No CVA tenderness SKIN: Warm, dry, no rash. NEURO: Alert and oriented x3. PSYCH: Normal mood and affect Course Course Emergency Course: Patient is aware of diagnosis, understands and agrees to treatment plan. Anticipatory guidance given. Patient agrees to follow-up as directed and is aware of reasons to seek care at the emergency department. Portions of this record may have been created with voice recognition software Level of Care: Express Care Visit Vital Signs Vital signs: Reviewed. MDM - Female Genitourinary MDM Narrative Medical decision making narrative: Exam findings and UA show no acute concerns or changes; patient is non-toxic appearing and is in no distress. Patient is appropriate for outpatient treatment and follow-up. Differential Diagnosis Differential diagnosis: Likely urinary tract infection and cystitis Critical Care Time Critical Care Time Critical Care Time: No Discharge Plan Discharge Clinical Impression: Urinary tract infection Patient Disposition: Home Condition: Stable Instructions: Antibiotic Form, Urinary Tract Infection in Women (ED) Additional Instructions: We will send a urine culture to the lab; if the culture identifies an organism that the prescribed antibiotic will not treat, you will receive a phone call from an urgent care staff member and an appropriate antibiotic will be prescribed. -Your symptoms should begin to improve within a day of starting antibiotics. But you should finish all the antibiotic pills you get. Otherwise your infection might come back. -Also recommend: increase water intake. Tylenol/ibuprofen as needed for pain or fever -Follow-up with your primary care provider for urine recheck or seek ER visit if condition worsens with high fever, nausea, vomiting and severe back pain. Patient Language: South African Prescriptions: New ondansetron 4 mg tablet,disintegrating 4 mg PO Q6H PRN (Reason: nausea and vomiting) Qty: 4 0RF amoxicillin-pot clavulanate 875-125 mg tablet 1 tablet PO Q12H 10 Days Qty: 20 0RF No Action fluoxetine 20 mg capsule penicillin V potassium 500 mg tablet 500 mg PO Q6H Qty: 40 0RF amitriptyline 25 mg tablet 25 mg PO HS alprazolam 1 mg tablet 1 mg PO TID Follow-up/Referrals: UNKNOWN,DOCTOR [Primary Care Provider] Time of Disposition: 08:48
[2025-04-30 09:07] LABS: EDUAAPPEAR Cloudy; EDUABILI Negative (Negative); EDUABLOOD 3+ (Negative); EDUACOLOR1 Yellow; EDUAGLUCOSE Negative (Negative); EDUAKETONE Negative (Negative); EDUALEUKO 2+ (Negative); EDUANITRATE Negative (Negative); EDUAPH 6.0; EDUAPROTEIN 2+ (Negative); EDUASPGRAVITY 1.020; EDUAUROBILI 0.2
== END 2025-04-30 08:50 | disposition home or self-care (01) ==
PROVIDERS: Emergency Provider Nurse Practitioner
DX: N39.0 Urinary tract infection, site not specified (principal); Z87.891 Personal history of nicotine dependence
CPT/HCPCS: 81003; 87086; 99213; G0463